=== PATIENT | female | born 1955 | race Caucasian/White ===

== ENCOUNTER 2016-12-03 14:19 | Inpatient (IN) | payer OTHER ==
[~2016-12-03] VITALS: Ht 165.1 cm; Wt 61.9 kg
[2016-12-03 14:20] VITALS: BP 208/102; PULSE 98; RESP 20; TEMP 97.3; O2SAT 93
[2016-12-03] MEDS ORDERED: SODIUM CHLOR 0.9% 1000 ML INJ 1,000 ML IV SCH (14:37)
--- NOTE | 2016-12-03 14:39 | PD ---
HPI Chief Complaint: GI Complaint Time Seen by Provider: 14:25 Travel History International Travel<30 days: No Contact w/Intl Traveler<30days: No Traveled to known affect area: No History of Present Illness HPI This is a 61-year-old female history of pancreatic cancer who presents for evaluation of cough, nausea, vomiting, diarrhea. She reports that she received her 12th round of chemotherapy this past Sunday on November. She reports that since then she has had nausea, vomiting, diarrhea as well as a cough. The cough is dry and persistent. She reports several episodes of watery stool a day however she begin taking Imodium yesterday and this seems to have resolved diarrhea. She has had persistent nausea with vomiting and dry heaving. She has been taking Zofran by mouth but this doesn't seem to be helping. She reports her temperature has been up to 99.6 and her temperature always seems to be in this range after her chemotherapy treatments. He denies any chest pain or abdominal pain, flank pain, dysuria. Her oncologist is Dr. Cam. Primary care physician is Dr. Silva. She reports that she was hospitalized at the end of September for several days for fever of unknown origin and she was receiving antibiotics during that time. That was last time she had antibiotic therapy. No history of C. difficile. No other complaints. PFSH Past Medical History Narrative Medical History of pancreatic cancer, hypertension Chemotherapy: Yes (11/29/16) Diabetes: Yes Social History Alcohol Use: No Tobacco Use: No Allergies-Medications (Allergen,Severity, Reaction): Coded Allergies: Codeine (Verified Allergy, Severe, Dizziness, 12/03/16) Dilaudid (Verified Allergy, Severe, Confusion, 12/03/16) Phenergan (Verified Allergy, Severe, Swelling, 12/03/16) Reported Meds & Prescriptions Reported Meds & Active Scripts Active Reported Pancreatin 325 Mg Tab 500 Mg PO TIDAC Systane Opth Drops (Polyethylene Glycol-Propylene Glycol Opth Drp) 0.4-0.3% Soln 1-2 Drop EACH EYE PRN PRN Calcium Carbonate (Antacid) 500 Mg Chew 750 Mg CHEW PRN Vitamin D-400 (Cholecalciferol) 400 Unit Chew 400 Units CHEW DAILY Probiotic (Lactobacillus Acidophilus) 1 Cap Cap 1 Cap PO TIDAC [place]-3 Fish Oil/Vitamin (Fish Oil-Cholecalciferol) 1,000-1,000 Mg Cap 1 Cap PO DAILY Multiple Vitamin 1 Tab 1 Tab PO DAILY Aspirin 81 Mg Chew 81 Mg CHEW DAILY Folic Acid 400 Mcg Tab 400 Mcg PO DAILY Metoprolol Tartrate 25 Mg Tab 25 Mg PO BID Review of Systems Except as stated in HPI: all other systems reviewed are Neg Physical Exam Narrative GENERAL: Well-developed well-nourished female in no acute distress SKIN: Warm and dry. Healed surgical scar noted across the abdomen. HEAD: Atraumatic. Normocephalic. EYES: Pupils equal and round. No scleral icterus. No injection or drainage. ENT: No nasal bleeding or discharge. Mucous membranes pink and moist. NECK: Trachea midline. No JVD. CARDIOVASCULAR: Regular rate and rhythm. No murmur appreciated. RESPIRATORY: No accessory muscle use. Clear to auscultation. Breath sounds equal bilaterally. No crackles no wheezing or rhonchi GASTROINTESTINAL: Abdomen soft, non-tender, nondistended. Hepatic and splenic margins not palpable. MUSCULOSKELETAL: No obvious deformities. Pedal edema bilaterally. NEUROLOGICAL: Awake and alert. No obvious cranial nerve deficits. Motor grossly within normal limits. Normal speech. PSYCHIATRIC: Appropriate mood and affect; insight and judgment normal. Data Data Last Documented VS Vital Signs Date Time Temp Pulse Resp B/P Pulse Ox O2 Delivery O2 Flow Rate FiO2 12/03/16 14:20 97.3 98 20 208/102 93 Room Air Orders Electrocardiogram (12/03/16 14:37) Complete Blood Count With Diff (12/03/16 14:37) Comprehensive Metabolic Panel (12/03/16 14:37) Magnesium (Mg) (12/03/16 14:37) Lipase (12/03/16 14:37) Urinalysis - C+S If Indicated (12/03/16 14:37) Influenzae A/B Antigen (12/03/16 14:37) Blood Culture (12/03/16 14:37) Chest, Pa & Lat (12/03/16 14:37) Iv Access Insert/Monitor (12/03/16 14:37) Ondansetron Inj (Zofran Inj) (12/03/16 14:45) Sodium Chlor 0.9% 1000 Ml Inj (Ns 1000 M (12/03/16 14:37) C Diff Toxin Pcr (12/03/16 14:39) Enteric Path (Stool) (12/03/16 14:39) Lactic Acid Sepsis Protocol (12/03/16 14:59) Albuterol-Ipratropium Neb (Duoneb Neb) (12/03/16 15:15) Metoclopramide Inj (Reglan Inj) (12/03/16 16:15) Urine Culture (12/03/16 15:49) Azithromycin Inj (Zithromax Inj) (12/03/16 17:00) Ceftriaxone Inj (Rocephin Inj) (12/03/16 17:00) Admit To Inpatient (12/03/16 ) Vital Signs (Adult) Q4H (12/03/16 17:00) Activity Oob Ad Leonela (12/03/16 17:00) Intake + Output IMELDA.QSHIFT (12/03/16 17:00) Diet Heart Healthy (12/03/16 Dinner) Sodium Chlor 0.9% 1000 Ml Inj (Ns 1000 M (12/03/16 17:00) Sodium Chloride 0.9% Flush (Ns Flush) (12/03/16 17:00) Sodium Chloride 0.9% Flush (Ns Flush) (12/03/16 21:00) Acetaminophen (Tylenol) (12/03/16 17:00) Ondansetron Inj (Zofran Inj) (12/03/16 17:00) Temazepam (Restoril) (12/03/16 17:00) Comprehensive Metabolic Panel (12/04/16 06:00) Complete Blood Count With Diff (12/04/16 06:00) Scd Bilateral/Knee High IMELDA.BID (12/03/16 17:00) Naloxone Inj (Narcan Inj) (12/03/16 17:00) Inpatient Certification (12/03/16 ) Admit Order (Ed Use Only) (12/03/16 17:11) Labs Laboratory Tests Test 12/03/16 12/03/16 15:00 15:49 White Blood Count 14.9 TH/MM3 Red Blood Count 3.20 MIL/MM3 Hemoglobin 10.3 GM/DL Hematocrit 30.5 % Mean Corpuscular Volume 95.1 FL Mean Corpuscular Hemoglobin 32.2 PG Mean Corpuscular Hemoglobin 33.8 % Concent Red Cell Distribution Width 20.4 % Platelet Count 127 TH/MM3 Mean Platelet Volume 10.0 FL Neutrophils (%) (Auto) 97.6 % Lymphocytes (%) (Auto) 1.9 % Monocytes (%) (Auto) 0.4 % Eosinophils (%) (Auto) 0.1 % Basophils (%) (Auto) 0.0 % Neutrophils # (Auto) 14.5 TH/MM3 Lymphocytes # (Auto) 0.3 TH/MM3 Monocytes # (Auto) 0.1 TH/MM3 Eosinophils # (Auto) 0.0 TH/MM3 Basophils # (Auto) 0.0 TH/MM3 CBC Comment DIFF FINAL Differential Comment Sodium Level 130 MEQ/L Potassium Level 4.3 MEQ/L Chloride Level 94 MEQ/L Carbon Dioxide Level 23.9 MEQ/L Anion Gap 12 MEQ/L Blood Urea Nitrogen 31 MG/DL Creatinine 1.67 MG/DL Estimat Glomerular Filtration 31 ML/MIN Rate Random Glucose 135 MG/DL Lactic Acid Level 1.5 mmol/L Calcium Level 8.6 MG/DL Magnesium Level 2.7 MG/DL Total Bilirubin 1.5 MG/DL Aspartate Amino Transf 62 U/L (AST/SGOT) Alanine Aminotransferase 58 U/L (ALT/SGPT) Alkaline Phosphatase 79 U/L Total Protein 7.0 GM/DL Albumin 2.8 GM/DL Lipase 81 U/L Urine Color YELLOW Urine Turbidity HAZY Urine pH 6.0 Urine Specific [place] 1.016 Urine Protein 300 mg/dL Urine Glucose (UA) NEG mg/dL Urine Ketones TRACE mg/dL Urine Occult Blood MOD Urine Nitrite NEG Urine Bilirubin NEG Urine Urobilinogen LESS THAN 2.0 MG/DL Urine Leukocyte Esterase NEG Urine RBC 8 /hpf Urine WBC 17 /hpf Urine Squamous Epithelial 2 /hpf Cells Urine White Blood Cell Casts 10 /lpf Urine Mucus FEW /lpf Microscopic Urinalysis Comment CATH-CULTURE IND MDM Medical Decision Making Medical Screen Exam Complete: Yes Emergency Medical Condition: Yes Medical Record Reviewed: Yes Interpretation(s) Chest x-ray mild consolidation at both bases CBC WBC 14.9 with 97.6% neutrophils CMP BUN 31, creatinine 1.67, sodium 1:30, chloride 94, magnesium 2.7, total bilirubin 1.5, AST 62, and ALT 58 Urinalysis 17 the PVCs, 8 RBCs on a culture pending Differential Diagnosis Chemotherapy side effect versus dehydration versus neutropenic fever versus C. difficile versus gastroenteritis versus bronchitis versus pneumonia versus influenza Narrative Course This is a 61-year-old female who received her 12th round of chemotherapy for pancreatic cancer on November 29. Since then she has had a cough, nausea and vomiting. She had diarrhea for several days but this seems to have resolved with the use of Imodium. She's had no abdominal pain. Temperature as high as 99.6 at home with no objective fevers. Plan is for basic lab work, chest x-ray, blood cultures, influenza antigen. She'll be given IV fluids and Zofran and reassessed. The patient's pulse oximetry is low at 92%. Upon recheck it was 96%. She reports that she had some wheezing yesterday evening in her upper airways. She will be given a DuoNeb therapy. The patient's lab work imaging studies of interview. She has questionable consolidation in both lung bases and given her cough there is concern for pneumonia. Urinalysis reveals pyuria and hematuria concerning for urinary tract infection. White count is elevated at 14.9 with 97% neutrophils. BUN 31 with creatinine 1.67, likely acute kidney injury secondary to dehydration, no history of chronic kidney disease. Hyponatremia noted as well. The patient will be given azithromycin and Rocephin. She will be admitted for further management. Discussed with Dr. Bustamante who is agreeable. Sepsis Criteria SIRS Criteria (2 or more): Heart rate over 90, WBC > 56482, < 4000 or > 10% bands Sepsis Criteria (SIRS+source): Infect source susp/known Criteria Outcome: Meets sepsis criteria Diagnosis Primary Impression: UTI (urinary tract infection) Qualified Code: N30.01 - Acute cystitis with hematuria Additional Impressions: Pneumonia Qualified Code: J18.9 - Pneumonia of both lower lobes due to infectious organism PAULA (acute kidney injury) Admitting Information Admitting Physician Requests: Admit Francisco Ireland Dec 03, 2016 14:39
[2016-12-03] MEDS ORDERED: ONDANSETRON HCL 4 MG/2 ML VIAL IVP ONE (14:45)
[2016-12-03] MEDS ORDERED: [UNRECOGNIZED DRUG - CODE] PO (14:48)
[2016-12-03] MEDS ORDERED: OMEGCAP PO (14:48)
[2016-12-03] MEDS ORDERED: ASPI81CH CHEW (14:48)
[2016-12-03] MEDS ORDERED: LACTCAP8 PO (14:48)
[2016-12-03] MEDS ORDERED: MULTTAB67 PO (14:48)
[2016-12-03] MEDS ORDERED: VITA400C59 CHEW (14:48)
[2016-12-03] MEDS ORDERED: SYSTSOL EACH EYE (14:48)
[2016-12-03] MEDS ORDERED: METO25TA3 PO (14:48)
[2016-12-03] MEDS ORDERED: FOLI400T PO (14:48)
[2016-12-03] MEDS ORDERED: CALC500C16 CHEW (14:48)
[2016-12-03] MEDS: RESP: ALBUTEROL 2.5 MG/IPRATROPIUM 0.5 MG NEB (SCH) INH (15:27)
[2016-12-03 15:30] VITALS: BP 183/85; PULSE 98; RESP 16; O2SAT 98
--- NOTE | 2016-12-03 15:40 | RADRPT ---
EXAM DATE/TIME: 12/03/2016 15:22 [place] COMPARISON: No previous studies available for comparison. INDICATIONS : Cough. MEDICAL HISTORY : Carcinoma, pancreas. SURGICAL HISTORY : Port placement. ENCOUNTER: Initial ACUITY: 4 - 6 days PAIN SCORE: 0/10 LOCATION: Bilateral chest FINDINGS: Small pleural effusions and mild proximal consolidation seen of both lung bases. No pneumothorax. Hea rt size within normal limits. There is a left subclavian [id number] catheter with tip in the superior vena cava. CONCLUSION: Small effusions and mild consolidation of both bases. Moy Garcia MD on December 03, 2016 at 15:38 Board Certified Radiologist. This report was verified electronically.
[2016-12-03 15:42] LABS: AUTOMATED NEUTROPHIL # 14.5 TH/MM3 (1.8-7.7); EOSINOPHIL % 0.1 % (0.0-4.0); HEMATOCRIT 30.5 % (35.0-46.0); HEMO FLAGS DIFF FINAL; LYMPH % 1.9 % (9.0-44.0); LYMPHOCYTE # 0.3 TH/MM3 (1.0-4.8); MEAN CELL VOLUME 95.1 FL (80.0-100.0); MEAN CORPUSCULAR HEMOGLOBIN 32.2 PG (27.0-34.0); MEAN CORPUSCULAR HGB CONC 33.8 % (32.0-36.0); MONO % 0.4 % (0.0-8.0); NEUT % 97.6 % (16.0-70.0); PLATELET COUNT 127 TH/MM3 (150-450); RED CELL DISTRIBUTION WIDTH 20.4 % (11.6-17.2); WHITE BLOOD COUNT 14.9 TH/MM3 (4.0-11.0)
[2016-12-03 16:04] LABS: ANION GAP 12 MEQ/L (5-15); AST (GOT) 62 U/L (15-37); BICARBONATE 23.9 MEQ/L (21.0-32.0); BLOOD UREA NITROGEN 31 MG/DL (7-18); CHLORIDE 94 MEQ/L (98-107); GLOMERULAR FILTRATION RATE 31 ML/MIN (>89); MAGNESIUM 2.7 MG/DL (1.5-2.5); POTASSIUM 4.3 MEQ/L (3.5-5.1); SODIUM (NA) 130 MEQ/L (136-145)
[2016-12-03 16:08] LABS: ALKALINE PHOSPHATASE 79 U/L (45-117); ALT (GPT) 58 U/L (10-53); TOTAL BILIRUBIN ADULT 1.5 MG/DL (0.2-1.0)
[2016-12-03] MEDS ORDERED: METOCLOPRAMIDE HCL 10 MG/2 ML VIAL IV PUSH ONE (16:15)
[2016-12-03 16:19] LABS: BLOOD, URINE MOD (NEG); GLUCOSE,URINE NEG (NEG); KETONE, URINE TRACE mg/dL (NEG); MUCUS URINE FEW /lpf (OCC); NITRITE,URINE NEG (NEG); SQUAMOUS EPITHELIAL CELL URINE 2 /hpf (0-5); URINE COLOR YELLOW (YELLW/STRAW); WHITE BLOOD CELL CAST, URINE 10 /lpf
[2016-12-03 16:31] LABS: COMMENT (UR) CATH-CULTURE IND; CULTURE IF INDICATED CATH CULTURE IND
[2016-12-03] MEDS ORDERED: SODIUM CHLORIDE 0.9% FLUSH 5 ML FLUSH FLUSH PRN (17:00)
[2016-12-03] MEDS ORDERED: AZITHROMYCIN INJ 500 MG in SODIUM CHLOR 0.9% 250 ML INJ 250 ML IV ONE (17:00)
[2016-12-03] MEDS ORDERED: NALOXONE HCL 0.4 MG/ML AMP IV PRN (17:00)
[2016-12-03] MEDS ORDERED: ACETAMINOPHEN 325 MG TAB PO PRN (17:00)
[2016-12-03] MEDS ORDERED: ONDANSETRON HCL 4 MG/2 ML VIAL IVP PRN (17:00)
[2016-12-03] MEDS ORDERED: cefTRIAXone INJ 1,000 MG in SODIUM CHLORIDE 0.9% INJ 100 ML IV ONE (17:00)
--- NOTE | 2016-12-03 17:04 | HHI.HP ---
cc: Dr. Silva [facility] Service [facility] Primary Care Physician Antonio Silva MD Admission Diagnosis Diagnoses: Chief Complaint: cough/nausea/vomiting/diarrhea Travel History International Travel<30 Days: No Contact w/Intl Traveler <30 Da: No Traveled to Known Affected Are: No Sepsis Criteria SIRS Criteria (2 or more): Heart rate over 90, WBC > 62387, < 4000 or > 10% bands Sepsis Criteria (SIRS+source): Infect source susp/known Criteria Outcome: Meets sepsis criteria History of Present Illness 61-year-old female with history of pancreatic cancer on chemotherapy, and hypertension, presents with a 4 day history of cough, nausea/vomiting, and diarrhea. The patient states on Wednesday 11/29 she had her last round of chemotherapy and afterwards started developing cough and fevers. The patient states normally she does experience fevers after chemotherapy. She became concerned when she developed an intractable dry nonproductive cough and associated chest tightness described as difficulty taking deep breaths. She then started having nonbloody diarrhea, took Imodium which did help relieve the diarrhea. She then developed nausea, with only few episodes of clear emesis. Denies abdominal pain. She has not been able to eat in 4 days and feels very weak and dehydrated. Her oncologist is Dr. Cam. Since her arrival, BP has been elevated, 208/102. The patient did take her metoprolol this morning however on previous doctor's visits her blood pressure has been consistently elevated. She was started on amlodipine by her PCP however developed lower extremity edema and her doctor discontinued this 1 week ago. Chest xray obtained which showed small bilateral effusions and infiltrates. UA abnormal. She was given IV Rocephin and Azithro. Labs remarkable for WBC 14.9K, Na 130, Cr 1.67. The patient denies any history of CKD. Review of Systems Constitutional: COMPLAINS OF: Fatigue, Fever, DENIES: Diaphoretic episodes, Weight gain, Weight loss, Chills, Dizziness, Change in appetite Endocrine: DENIES: Polydipsia, Polyuria, Polyphagia Eyes: DENIES: Blurred vision, Vision loss, Double Vision Ears, nose, mouth, throat: DENIES: Throat pain, Running Nose, Odynophagia Respiratory: COMPLAINS OF: Cough, DENIES: Wheezing, Sputum production, Shortness of breath Cardiovascular: COMPLAINS OF: Lower Extremity Edema, DENIES: Chest pain, Syncope, Dyspnea on Exertion Gastrointestinal: COMPLAINS OF: Diarrhea, Nausea, Vomiting, DENIES: Abdominal pain, Black stools, Bloody stools, Constipation Genitourinary: DENIES: Urinary frequency, Urgency, Dysuria Musculoskeletal: DENIES: Back pain, Neck pain Integumentary: DENIES: Abnormal pigmentation, Pruritus, Rash Hematologic/lymphatic: DENIES: Bruising, Lymphadenopathy Immunologic/allergic: DENIES: Eczema, Urticaria Neurologic: DENIES: Abnormal gait, Headache, Localized weakness Psychiatric: DENIES: Anxiety, Depression Past Family Social History Past Medical History pancreatic cancer on chemotherapy hypertension Past 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 Reported Medications Pancreatin 325 Mg Tab 500 Mg PO TIDAC Systane Opth Drops (Polyethylene Glycol-Propylene Glycol Opth Drp) 0.4-0.3% Soln 1-2 Drop EACH EYE PRN PRN Calcium Carbonate (Antacid) 500 Mg Chew 750 Mg CHEW PRN Vitamin D-400 (Cholecalciferol) 400 Unit Chew 400 Units CHEW DAILY Probiotic (Lactobacillus Acidophilus) 1 Cap Cap 1 Cap PO TIDAC [place]-3 Fish Oil/Vitamin (Fish Oil-Cholecalciferol) 1,000-1,000 Mg Cap 1 Cap PO DAILY Multiple Vitamin 1 Tab 1 Tab PO DAILY Aspirin 81 Mg Chew 81 Mg CHEW DAILY Folic Acid 400 Mcg Tab 400 Mcg PO DAILY Metoprolol Tartrate 25 Mg Tab 25 Mg PO BID Allergies: Coded Allergies: Codeine (Verified Allergy, Severe, Dizziness, 12/03/16) Dilaudid (Verified Allergy, Severe, Confusion, 12/03/16) Phenergan (Verified Allergy, Severe, Swelling, 12/03/16) Active Ordered Medications Current Medications Medications (Trade) Dose Ordered Sig/Nathaniel Route Start Time Stop Time Status Last Admin Azithromycin 500 mg/Sodium Chloride 250 ml @ 250 mls/hr ONCE ONCE IV 12/03/16 17:00 12/03/16 17:59 (Rocephin Inj/NS Inj) 100 ml @ 200 mls/hr ONCE ONCE IV 12/03/16 17:00 3/12/17 17:29 Family History Maternal family with breast cancer Father with enlarged heart Social History Denies any tobacco, alcohol, or illicit drug use. Physical Exam Vital Signs Vital Signs Date Time Temp Pulse Resp B/P Pulse Ox O2 Delivery O2 Flow Rate FiO2 12/03/16 14:20 97.3 98 20 208/102 93 Room Air Physical Exam GENERAL: Well-nourished, well-developed pleasant middle aged female patient in [facility]. SKIN: Warm and dry. No rash. HEAD: Normocephalic. Atraumatic. EYES: Pupils equal and round. No scleral icterus. No injection or drainage. ENT: No nasal bleeding or discharge. Mucous membranes dry. NECK: Supple. Trachea midline. CARDIOVASCULAR: Regular rate and rhythm. S1, S2 noted. No murmur appreciated. RESPIRATORY: No accessory muscle use. Diminished breath sounds at bilateral bases with faint crackles at the right base. Breath sounds equal bilaterally. GASTROINTESTINAL: Abdomen soft, non-tender, nondistended. Normoactive bowel sounds x4. MUSCULOSKELETAL: No obvious deformities. 1+ bilateral lower extremity edema. NEUROLOGICAL: Awake and alert. No obvious cranial nerve deficits. Motor grossly within normal limits. 5/5 muscle strength in bilateral upper and lower extremities. Normal speech. PSYCHIATRIC: Appropriate mood and affect; insight and judgment normal. Laboratory Laboratory Tests Test 12/03/16 12/03/16 15:00 15:49 White Blood Count 14.9 Red Blood Count 3.20 Hemoglobin 10.3 Hematocrit 30.5 Mean Corpuscular Volume 95.1 Mean Corpuscular Hemoglobin 32.2 Mean Corpuscular Hemoglobin 33.8 Concent Red Cell Distribution Width 20.4 Platelet Count 127 Mean Platelet Volume 10.0 Neutrophils (%) (Auto) 97.6 Lymphocytes (%) (Auto) 1.9 Monocytes (%) (Auto) 0.4 Eosinophils (%) (Auto) 0.1 Basophils (%) (Auto) 0.0 Neutrophils # (Auto) 14.5 Lymphocytes # (Auto) 0.3 Monocytes # (Auto) 0.1 Eosinophils # (Auto) 0.0 Basophils # (Auto) 0.0 CBC Comment DIFF FINAL Differential Comment Sodium Level 130 Potassium Level 4.3 Chloride Level 94 Carbon Dioxide Level 23.9 Anion Gap 12 Blood Urea Nitrogen 31 Creatinine 1.67 Estimat Glomerular Filtration 31 Rate Random Glucose 135 Lactic Acid Level 1.5 Calcium Level 8.6 Magnesium Level 2.7 Total Bilirubin 1.5 Aspartate Amino Transf 62 (AST/SGOT) Alanine Aminotransferase 58 (ALT/SGPT) Alkaline Phosphatase 79 Total Protein 7.0 Albumin 2.8 Lipase 81 Urine Color YELLOW Urine Turbidity HAZY Urine pH 6.0 Urine Specific [place] 1.016 Urine Protein 300 Urine Glucose (UA) NEG Urine Ketones TRACE Urine Occult Blood MOD Urine Nitrite NEG Urine Bilirubin NEG Urine Urobilinogen LESS THAN 2.0 Urine Leukocyte Esterase NEG Urine RBC 8 Urine WBC 17 Urine Squamous Epithelial 2 Cells Urine White Blood Cell Casts 10 Urine Mucus FEW Microscopic Urinalysis Comment CATH-CULTURE IND Date/Time Procedure Status Source Growth 12/03/16 15:49 Urine Culture Received Urine Catheterized Urine Pending 12/03/16 15:08 Aerobic Blood Culture Received Blood Peripheral Pending 12/03/16 15:08 Anaerobic Blood Culture Received Blood Peripheral Pending 12/03/16 15:00 Influenza Types A,B Antigen (MAGALY) - Final Complete Nasal Aspirate NEGATIVE FOR FLU A AND B ANTIGEN.... Result Diagram: 12/03/16 1500 12/03/16 1500 Imaging 12/03/16 - CXR with small effusions and mild consolidations at both bases. Assessment and Plan Problem List: (1) Sepsis ICD Code: A41.9 Status: Acute (2) Pneumonia ICD Code: J18.9 Status: Acute (3) UTI (urinary tract infection) ICD Code: N39.0 Status: Acute (4) PAULA (acute kidney injury) ICD Code: N17.9 Status: Acute (5) Accelerated hypertension ICD Code: I10 Status: Acute (6) Pancreatic cancer ICD Code: C25.9 Status: Chronic Assessment and Plan 61-year-old female with past medical history of pancreatic cancer on chemotherapy and hypertension presents with a 4 day history of cough, nausea/ vomiting, and diarrhea Sepsis: suspect secondary to pneumonia, possible UTI. WBC 14.9K, tachycardic. Lactic acid 1.5. Influenza negative. Blood cultures collected. UA abnormal, see below. CXR with pneumonia, see below. Start IV Antibiotics. IVF. Monitor CBC. Community Acquired Pneumonia, Immunocompromised: CXR images reviewed by me, shows bilateral small effusions and consolidations. +leukocytosis and tachycardia. Continue on IV Rocephin/Azithro. Nebs prn. Robitussin prn cough. UTI, suspected: UA abnormal. On IV Rocephin as above. Monitor Urine culture. Intractable Nausea/Vomiting/Diarrhea: suspect multifactorial secondary to chemotherapy, pneumonia, UTI. Supportive treatment with IVF, antiemetics prn. Check stool studies, Cdiff. Diet as tolerated. Lactinex tid. PAULA: Cr 1.6, no previous labs to compare however no reported hx of CKD. Likely prerenal secondary to dehydration with vomiting/diarrhea. Give IVF. Avoid nephrotoxins. Repeat BMP in the am. Hypertensive Urgency secondary to Accelerated Hypertension: BP 208/102 in the ED. Avoid RODRI and diuretic with PAULA. Avoid Norvasc with recent reaction with lower extremity edema. Restart patient's metoprolol. Start on Nifedipine SR 30mg daily. Clonidine prn. Pancreatic Cancer: s/p resection. Undergoing chemotherapy. Continue patient's Pancreatin. Oncologist is Dr. Cam. Elevated LFT's: Probably secondary to chemo or sepsis. F/U LFT in AM. Hyponatremia: likely secondary to recent vomiting/diarrhea. Continue IVF with NS. Monitor BMP. Normocytic Anemia: likely secondary to cancer/chemotherapy. Hgb 10.3. No active signs of bleeding. Monitor CBC. Elevated Blood Glucose: random glucose 135 upon arrival. Check HgbA1c. DVT Prophylaxis: SCDs Written by Tana Zuniga, acting as scribe for Dr. Bustamante on 12/03/16 at 17:15. All or portions of this note were transcribed as above. I, Dr. Juancho Bustamante personally performed the history, physical exam, and medical decision making; and confirmed the accuracy of the information in the transcribed note. Authenticated by Dr. Juancho Bustamante on 12/03/16 at 17:49. Discussed Condition With Patient, ER Tana Singleton PA-C Dec 03, 2016 17:04 Juancho Bustamante MD Dec 03, 2016 17:51
[2016-12-03] MEDS ORDERED: RESP: ALBUTEROL 2.5 MG/IPRATROPIUM 0.5 MG NEB (PRN) NEB (17:15)
[2016-12-03] MEDS ORDERED: guaiFENesin/DEXTROMETHORPHAN 200 MG/20 MG/10 ML CUP PO PRN (17:15)
[2016-12-03 17:25] VITALS: BP 194/101; PULSE 100; RESP 18; O2SAT 96
[2016-12-03] MEDS ORDERED: NON-FORMULARY DRUG (Polyethylene Glycol-Propylene Glycol Opth Drp (Systane Opth Drops) 0 D EACH EYE PRN (17:45)
[2016-12-03] MEDS ORDERED: cloNIDine HCL 0.1 MG TAB PO PRN (17:45)
[2016-12-03] MEDS ORDERED: NIFEdipine 30 MG SUSTAINED RELEASE TAB PO ONE (17:45)
[2016-12-03] MEDS ORDERED: ENALAPRILAT 2.5 MG/2 ML VIAL IV PUSH ONE (17:45)
[2016-12-03] MEDS ORDERED: [UNRECOGNIZED DRUG - OTHER] EACH EYE PRN (18:15)
[2016-12-03 18:26] VITALS: BP 146/78; PULSE 91; RESP 16; O2SAT 95
[2016-12-03] MEDS: SODIUM CHLOR 0.9% 1000 ML INJ 1,000 ML IV SCH (18:37)
[2016-12-03] MEDS: SODIUM CHLORIDE 0.9% FLUSH 5 ML FLUSH FLUSH SCH (19:31)
[2016-12-03] MEDS: METOPROLOL TARTRATE 25 MG TAB PO SCH (19:31)
[2016-12-03 20:00] VITALS: BP 170/97; PULSE 97; RESP 18; TEMP 98.2; O2SAT 96
[2016-12-03 21:33] VITALS: BP 165/81; PULSE 84
[2016-12-03] MEDS: TEMAZEPAM 15 MG CAP PO PRN (23:39)
[2016-12-04] VITALS: BP 171/97; PULSE 98; RESP 18; TEMP 98.1; O2SAT 91
[2016-12-04] MEDS: SODIUM CHLOR 0.9% 1000 ML INJ 1,000 ML IV SCH (01:00)
[2016-12-04 04:00] VITALS: BP 144/88; PULSE 91; RESP 17; TEMP 98.2; O2SAT 92
[2016-12-04 06:54] LABS: AUTOMATED NEUTROPHIL # 8.9 TH/MM3 (1.8-7.7); BASOPHIL % 0.2 % (0.0-2.0); EOSINOPHIL # 0.1 TH/MM3 (0-0.4); EOSINOPHIL % 0.5 % (0.0-4.0); HEMATOCRIT 26.7 % (35.0-46.0); LYMPH % 6.5 % (9.0-44.0); LYMPHOCYTE # 0.6 TH/MM3 (1.0-4.8); MEAN CELL VOLUME 96.4 FL (80.0-100.0); MEAN CORPUSCULAR HEMOGLOBIN 32.6 PG (27.0-34.0); MEAN CORPUSCULAR HGB CONC 33.9 % (32.0-36.0); MONO % 0.9 % (0.0-8.0); NEUT % 91.9 % (16.0-70.0); PLATELET COUNT 96 TH/MM3 (150-450); RED BLOOD COUNT 2.77 MIL/MM3 (4.00-5.30); RED CELL DISTRIBUTION WIDTH 20.2 % (11.6-17.2); WHITE BLOOD COUNT 9.7 TH/MM3 (4.0-11.0)
[2016-12-04 06:59] LABS: HEMO FLAGS AUTO DIFF
[2016-12-04 07:25] LABS: ALT (GPT) 45 U/L (10-53); ANION GAP 9 MEQ/L (5-15); AST (GOT) 45 U/L (15-37); BICARBONATE 22.7 MEQ/L (21.0-32.0); BLOOD UREA NITROGEN 31 MG/DL (7-18); CHLORIDE 100 MEQ/L (98-107); GLOMERULAR FILTRATION RATE 39 ML/MIN (>89); POTASSIUM 3.8 MEQ/L (3.5-5.1); SODIUM (NA) 132 MEQ/L (136-145)
[2016-12-04 07:27] LABS: ALKALINE PHOSPHATASE 65 U/L (45-117); TOTAL BILIRUBIN ADULT 0.9 MG/DL (0.2-1.0)
[2016-12-04 08:00] VITALS: BP 162/87; PULSE 91; RESP 16; TEMP 98.3; O2SAT 98
[2016-12-04] MEDS ORDERED: PANCREATIN PO SCH ×2 (08:00)
[2016-12-04 08:11] LABS: CRENATED RBCS 1+ (NORMAL)
[2016-12-04 08:12] LABS: OVALOCYTES 1+ (NORMAL); PLATELET ESTIMATE SMEAR LOW (NORMAL); PLATELET MORPHOLOGY NORMAL (NORMAL); SCAN/DIFF AUTO DIFF CONFIRMED
[2016-12-04] MEDS ORDERED: FOLIC ACID 1 MG TAB PO SCH (09:00)
[2016-12-04] MEDS: METOPROLOL TARTRATE 25 MG TAB PO SCH ×2 (09:30→20:00)
[2016-12-04] MEDS: LACTOBACILLUS ACIDOPHILUS TAB PO SCH ×3 (09:30→19:19)
[2016-12-04] MEDS: NIFEdipine 30 MG SUSTAINED RELEASE TAB PO SCH (09:31)
[2016-12-04] MEDS: CHOLECALCIFEROL (VIT D3) 400 UNIT TAB PO SCH (09:31)
[2016-12-04] MEDS: ASPIRIN 81 MG CHEW TAB CHEW SCH (09:31)
[2016-12-04] MEDS: SODIUM CHLORIDE 0.9% FLUSH 5 ML FLUSH FLUSH SCH ×2 (09:32→20:00)
[2016-12-04] MEDS: FOLIC ACID 1 MG TAB PO SCH (09:32)
[2016-12-04 11:14] LABS: HEMOGLOBIN A1b 0.9 %; HEMOGLOBIN Ao 84.9 %; HEMOGLOBIN F 0.9 %; HEMOGLOBIN LA1C 1.9 %
[2016-12-04 12:00] VITALS: BP 160/87; PULSE 86; RESP 20; TEMP 98.8; O2SAT 94
--- NOTE | 2016-12-04 12:44 | HHI.PR ---
Subjective Remarks Patient reports feeling better today. Coughing less. Afebrile. Objective Vitals Vital Signs Date Time Temp Pulse Resp B/P Pulse Ox O2 Delivery O2 Flow Rate FiO2 12/04/16 08:00 98.3 91 16 162/87 98 12/04/16 04:00 98.2 91 17 144/88 92 12/04/16 00:00 98.1 98 18 171/97 91 12/03/16 21:33 84 165/81 12/03/16 20:00 98.2 97 18 170/97 96 12/03/16 18:26 91 16 146/78 95 Room Air 12/03/16 17:25 100 18 194/101 96 Nasal Cannula 2 12/03/16 15:30 98 16 183/85 98 Nasal Cannula 2 12/03/16 14:20 97.3 98 20 208/102 93 Room Air I/O 12/03/16 12/03/16 12/03/16 12/04/16 12/04/16 12/04/16 07:00 15:00 23:00 07:00 15:00 23:00 Intake Total 240 ml 1642 ml Balance 240 ml 1642 ml Intake Oral 240 ml 720 ml IV Total 922 ml Result Diagram: 12/04/16 0620 12/04/16 0620 Objective Remarks GENERAL: This is a well-nourished, well-developed patient, in no apparent distress. CARDIOVASCULAR: Normal rate and regular rhythm without murmurs, gallops, or rubs. RESPIRATORY: Good respiratory efforts. Diminished breath sounds at the bases bilaterally. No wheezing. GASTROINTESTINAL: Abdomen soft, non-tender, non-distended. Normal active bowel sounds MUSCULOSKELETAL: Extremities without cyanosis, or edema. NEURO: Alert & Oriented x4 to person, place, time, situation. Moves all ext x4 PSYCH: Appropriate mood and affect. A/P Problem List: (1) Sepsis ICD Code: A41.9 Status: Acute (2) Pneumonia ICD Code: J18.9 Status: Acute (3) UTI (urinary tract infection) ICD Code: N39.0 Status: Acute (4) PAULA (acute kidney injury) ICD Code: N17.9 Status: Acute (5) Accelerated hypertension ICD Code: I10 Status: Acute (6) Pancreatic cancer ICD Code: C25.9 Status: Chronic Assessment and Plan 61-year-old female with past medical history of pancreatic cancer on chemotherapy and hypertension presents with a 4 day history of cough, nausea/ vomiting, and diarrhea Sepsis: suspect secondary to pneumonia. CXR with pneumonia. Continue IV Antibiotics. Monitor CBC. Community Acquired Pneumonia, Immunocompromised: CXR images reviewed by me, shows bilateral small effusions and consolidations. +leukocytosis and tachycardia on admission. Continue on IV Rocephin/Azithro. Nebs prn. Robitussin prn cough. Abnormal urinalysis: Urine cultures so far negative. Continue to monitor. Intractable Nausea/Vomiting/Diarrhea: suspect multifactorial secondary to chemotherapy, pneumonia, UTI. Much improved. Supportive treatment antiemetics prn. PAULA: Cr 1.6 on admission, no previous labs to compare however no reported hx of CKD. Likely prerenal secondary to dehydration with vomiting/diarrhea. Avoid nephrotoxins. Repeat BMP in the am. Hypertensive Urgency secondary to Accelerated Hypertension: BP 208/102 in the ED. Avoid RODRI and diuretic with PAULA. Avoid Norvasc with recent reaction with lower extremity edema. Restart patient's metoprolol. Started on nifedipine. Clonidine prn. Pancreatic Cancer: s/p resection. Undergoing chemotherapy. Continue patient's Pancreatin. Oncologist is Dr. Cam. Elevated LFT's: Probably secondary to chemo or sepsis. Resolved. Normocytic Anemia: likely secondary to cancer/chemotherapy. H&H stable. No active signs of bleeding. Monitor CBC. Elevated Blood Glucose: random glucose 135 upon arrival. HgbA1c 6.0. DVT Prophylaxis: SCDs Problem Qualifiers (1) Pneumonia: Qualified Code: J18.9 - Pneumonia of both lower lobes due to infectious organism (2) UTI (urinary tract infection): Qualified Code: N30.01 - Acute cystitis with hematuria Juancho Bustamante MD Dec 04, 2016 12:44
--- NOTE | 2016-12-04 14:51 | EKG ---
Date Performed: 12/03/2016 Time Performed: 14:56:14 PTAGE: 61 years EKG: Sinus rhythm NORMAL ECG NO PREVIOUS TRACING DOCTOR: Marycruz Canas Interpretating Date/Time 12/04/2016 14:48:37
[2016-12-04 17:00] VITALS: BP 165/96; PULSE 100; RESP 18; TEMP 99.3; O2SAT 94
[2016-12-04] MEDS: cefTRIAXone INJ 1,000 MG in SODIUM CHLORIDE 0.9% INJ 100 ML IV SCH (20:00)
[2016-12-04 21:25] VITALS: BP 173/88; PULSE 87; RESP 18; TEMP 98.9; O2SAT 95
[2016-12-04] MEDS: AZITHROMYCIN INJ 500 MG in SODIUM CHLOR 0.9% 250 ML INJ 250 ML IV SCH (21:33)
[2016-12-05] VITALS (8 sets, daily range): BP systolic 159–192; BP diastolic 74–96; PULSE 86–102; RESP 18–20; TEMP 97.3–98.7; O2SAT 94–98
--- NOTE | 2016-12-05 00:29 | RADRPT ---
EXAM DATE/TIME: 12/04/2016 22:46 [facility] COMPARISON: No previous studies available for comparison. INDICATIONS : Bilateral leg swelling. MEDICAL HISTORY : Mitral valve prolapse. Pancreatic cancer. Chemotherapy. Diabetes. Anxiety. SURGICAL HISTORY : Splenectomy. Pancreatic resection. ENCOUNTER: Initial ACUITY: 1 week PAIN SCORE: 2/10 LOCATION: Bilateral legs. TECHNIQUE: Venous ultrasound of the left and right leg was performed from the inguinal ligament to the proximal calf. Real-time, color Doppler and spectral tracing, compression and augmentation techniques were us ed. FINDINGS: RIGHT LEG: There is normal compressibility of the deep venous system from the inguinal region to the proximal ca lf. No echogenic clot is seen in the lumen of the common femoral, femoral, popliteal, and posterior tibial veins. There is a normal response of the venous system to proximal and distal augmentation an d respiration. LEFT LEG: There is normal compressibility of the deep venous system from the inguinal region to the proximal ca lf. No echogenic clot is seen in the lumen of the common femoral, femoral, popliteal, and posterior tibial veins. There is a normal response of the venous system to proximal and distal augmentation an d respiration. CONCLUSION: No evidence of lower extremity DVT on the right or left. Kodi Magdaleno MD on December 05, 2016 at 0:28 Board Certified Radiologist. This report was verified electronically.
[2016-12-05] MEDS: TEMAZEPAM 15 MG CAP PO PRN (00:31)
--- NOTE | 2016-12-05 00:31 | RADRPT ---
EXAM DATE/TIME: 12/04/2016 23:08 [facility] COMPARISON: No previous studies available for comparison. INDICATIONS : Left arm swelling. MEDICAL HISTORY : Mitral valve prolapse. Pancreatic cancer. Chemotherapy. Diabetes. Anxiety. SURGICAL HISTORY : Splenectomy. Pancreatic resection. ENCOUNTER: Initial ACUITY: 1 week PAIN SCORE: 1/10 LOCATION: Left arm. FINDINGS: Of the basilic vein distally indicating nonocclusive thrombus. There is otherwise normal compression and color Doppler flow of the left upper extremity veins. CONCLUSION: Nonocclusive superficial vein thrombosis of the basilic vein distally. No evidence of left upper extremity DVT. Kodi Magdaleno MD on December 05, 2016 at 0:28 Board Certified Radiologist. This report was verified electronically.
[2016-12-05 08:44] LABS: BICARBONATE 21.9 MEQ/L (21.0-32.0); POTASSIUM 3.9 MEQ/L (3.5-5.1)
[2016-12-05] MEDS: FOLIC ACID 1 MG TAB PO SCH (08:45)
[2016-12-05] MEDS: LACTOBACILLUS ACIDOPHILUS TAB PO SCH ×3 (08:45→17:00)
[2016-12-05] MEDS: METOPROLOL TARTRATE 25 MG TAB PO SCH (08:45)
[2016-12-05] MEDS: ASPIRIN 81 MG CHEW TAB CHEW SCH (08:45)
[2016-12-05] MEDS: SODIUM CHLORIDE 0.9% FLUSH 5 ML FLUSH FLUSH SCH ×2 (08:45→20:23)
[2016-12-05] MEDS: ENOXAPARIN SODIUM 40 MG/0.4 ML SYRINGE SQ SCH (08:45)
[2016-12-05] MEDS: NIFEdipine 30 MG SUSTAINED RELEASE TAB PO SCH (08:45)
[2016-12-05] MEDS: CHOLECALCIFEROL (VIT D3) 400 UNIT TAB PO SCH (08:45)
[2016-12-05 08:48] LABS: HEMATOCRIT 26.5 % (35.0-46.0); MEAN CELL VOLUME 96.2 FL (80.0-100.0); MEAN CORPUSCULAR HEMOGLOBIN 32.6 PG (27.0-34.0); MEAN CORPUSCULAR HGB CONC 33.8 % (32.0-36.0); PLATELET COUNT 63 TH/MM3 (150-450); RED BLOOD COUNT 2.76 MIL/MM3 (4.00-5.30); RED CELL DISTRIBUTION WIDTH 20.8 % (11.6-17.2); WHITE BLOOD COUNT 4.9 TH/MM3 (4.0-11.0)
[2016-12-05] MEDS ORDERED: NIFEdipine 30 MG SUSTAINED RELEASE TAB PO ONE (09:15)
--- NOTE | 2016-12-05 09:52 | HHI.PR ---
Subjective Remarks Patient reports persistent lower extremity swelling. Still gets short of breath with activities. On 2 L NC. No chest pain. Urinating well. US overnight revealed superficial basilic vein thrombosis. Objective Vitals Vital Signs Date Time Temp Pulse Resp B/P Pulse Ox O2 Delivery O2 Flow Rate FiO2 12/05/16 08:00 98.7 100 20 165/80 94 12/05/16 05:41 97.8 96 20 159/74 94 12/05/16 00:00 98.6 86 18 177/88 96 12/04/16 21:25 98.9 87 18 173/88 95 12/04/16 17:00 99.3 100 18 165/96 94 12/04/16 12:00 98.8 86 20 160/87 94 I/O 12/04/16 12/04/16 12/04/16 12/05/16 12/05/16 12/05/16 07:00 15:00 23:00 07:00 15:00 23:00 Intake Total 1642 ml 720 ml 480 ml Balance 1642 ml 720 ml 480 ml Intake Oral 720 ml 720 ml 480 ml IV Total 922 ml # Voids 5 2 # Bowel Movements 0 Result Diagram: 12/04/16 0620 12/05/16 0730 Objective Remarks GENERAL: This is a well-nourished, well-developed patient, in no apparent distress. CARDIOVASCULAR: Normal rate and regular rhythm without murmurs, gallops, or rubs. RESPIRATORY: Good respiratory efforts. Diminished breath sounds at the bases bilaterally. No wheezing. GASTROINTESTINAL: Abdomen soft, non-tender, non-distended. Normal active bowel sounds MUSCULOSKELETAL: 2+ bilateral LE pitting edema. NEURO: Alert & Oriented x4 to person, place, time, situation. Moves all ext x4 PSYCH: Appropriate mood and affect. A/P Problem List: (1) Sepsis ICD Code: A41.9 Status: Acute (2) Pneumonia ICD Code: J18.9 Status: Acute (3) UTI (urinary tract infection) ICD Code: N39.0 Status: Acute (4) PAULA (acute kidney injury) ICD Code: N17.9 Status: Acute (5) Accelerated hypertension ICD Code: I10 Status: Acute (6) Pancreatic cancer ICD Code: C25.9 Status: Chronic Assessment and Plan 61-year-old female with past medical history of pancreatic cancer on chemotherapy and hypertension presents with a 4 day history of cough, nausea/ vomiting, and diarrhea Sepsis on admission: suspect secondary to pneumonia. CXR with effusion and consolidation. Resolving. Continue IV Antibiotics. Monitor CBC. Community Acquired Pneumonia, Immunocompromised: CXR images reviewed by me, shows bilateral small effusions and consolidations. +leukocytosis and tachycardia on admission. Continue on IV Rocephin/Azithro. Nebs prn. Robitussin prn cough. PAULA: Cr 1.6 on admission, no previous labs to compare however no reported hx of CKD. Renal functions improved with IVF but LE edema worst. Will consult nephrology to evaluate the patient and determine if she would benefit from diuretics given persistent LE edema and the small effusions on chest x-ray Peripheral edema: See above. Obtain 2-d echo to rule out heart failure from uncontrolled HTN. Dejon gaspar. Intractable Nausea/Vomiting/Diarrhea: suspect multifactorial secondary to chemotherapy, pneumonia, UTI. Much improved. Supportive treatment antiemetics prn. Abnormal urinalysis: Urine cultures negative. Hypertensive Urgency on admission: BP 208/102 in the ED. BP still uncontrolled after adding Nifedipine. Patient reports Edema with Norvasc. Increase Metoprolol to 50 mg BID and Nifedipine to 60 mg daily. Clonidine prn. Appreciate further input from nephrology. Pancreatic Cancer: s/p resection. Undergoing chemotherapy. Continue patient's Pancreatin. Oncologist Dr. Cam consulted. Oral candidiasis: Diflucan and magic mouthwash for Oncology. Elevated LFT's: Probably secondary to chemo or sepsis. Resolved. Normocytic Anemia: likely secondary to cancer/chemotherapy. H&H stable. No active signs of bleeding. Monitor CBC. Left basilic vein superficial thrombosis: Hematology/Oncology following. Lovenox for DVT ppx. Elevated Blood Glucose: random glucose 135 upon arrival. HgbA1c 6.0. DVT Prophylaxis: Lovenox Case DW Dr. Cam. Problem Qualifiers (1) Pneumonia: Qualified Code: J18.9 - Pneumonia of both lower lobes due to infectious organism (2) UTI (urinary tract infection): Qualified Code: N30.01 - Acute cystitis with hematuria Juancho Bustamante MD Dec 05, 2016 09:52
[2016-12-05 09:54] LABS: REVIEW FLAG FINAL
[2016-12-05] MEDS ORDERED: FLUCONAZOLE 200 MG PREMIX BAG 100 ML IV SCH (11:00)
--- NOTE | 2016-12-05 12:10 | PD.CONS ---
HPI Service Nephrology Consult Requested By Reason for Consult Acute renal failure, lower extremity edema Primary Care Physician Antonio Silva MD History of Present Illness This is a 61 y/o female pt with a hx of HTN, MVP, and pancreatic cancer on chemotherapy. She was admitted with intractable nausea/vomiting, cough, that she had for days prior to admission. She finished her last chemo last Sunday last week. On arrival she was in renal failure, which has actually improved with IVF. Creatinine 1.6, improved to 1.2. She has developed lower extremity edema that has worsened. Of note her government contracts manager had started her on Amlodipine , which she took for 3 days and stopped due to the edema. Her sodium was also low on arrival, but has improved, now 134. We were consulted for management. She is in no distress, no complaints aside from altered taste due to thrush. She is on Zithrmoax and Rocephin for suspected UTI and PNA. She also has protein in the urine which may be new, she does not recall anyone mentioning this to her. (Aleida Underwood) Review of Systems Constitutional: COMPLAINS OF: Fatigue, DENIES: Fever, Weight gain Cardiovascular: COMPLAINS OF: Lower Extremity Edema Genitourinary: DENIES: Urinary frequency, Urinary incontinence, Urgency, Hematuria, Dysuria, Nocturia (Aleida Underwood) Past Family Social History Allergies: Coded Allergies: Codeine (Verified Allergy, Severe, Dizziness, 12/03/16) Dilaudid (Verified Allergy, Severe, Confusion, 12/03/16) Phenergan (Verified Allergy, Severe, Swelling, 12/03/16) Past Medical History HTN pancreatic CA s/p resection and chemotherapy MV Prolapse Past Surgical History pancreatectomy splenectomy, Jun 2016 Reported Medications Pancreatin 325 Mg Tab 500 Mg PO TIDAC Systane Opth Drops (Polyethylene Glycol-Propylene Glycol Opth Drp) 0.4-0.3% Soln 1-2 Drop EACH EYE PRN PRN Calcium Carbonate (Antacid) 500 Mg Chew 750 Mg CHEW PRN Vitamin D-400 (Cholecalciferol) 400 Unit Chew 400 Units CHEW DAILY Probiotic (Lactobacillus Acidophilus) 1 Cap Cap 1 Cap PO TIDAC Harvey-3 Fish Oil/Vitamin (Fish Oil-Cholecalciferol) 1,000-1,000 Mg Cap 1 Cap PO DAILY Multiple Vitamin 1 Tab 1 Tab PO DAILY Aspirin 81 Mg Chew 81 Mg CHEW DAILY Folic Acid 400 Mcg Tab 400 Mcg PO DAILY Metoprolol Tartrate 25 Mg Tab 25 Mg PO BID Active Ordered Medications Current Medications Medications (Trade) Dose Ordered Sig/Nathaniel Route Start Time Stop Time Status Last Admin (NS 1000 ml Inj) 1,000 ml @ 125 mls/hr Q8H IV 12/03/16 17:00 Hold 12/04/16 01:00 (NS Flush) 2 ml UNSCH PRN FLUSH 12/03/16 17:00 (NS Flush) 2 ml BID FLUSH 12/03/16 21:00 12/05/16 08:45 (Tylenol) 650 mg Q4H PRN PO 12/03/16 17:00 (Zofran Inj) 4 mg Q6H PRN IVP 12/03/16 17:00 (Restoril) 15 mg HS PRN PO 12/03/16 17:00 12/05/16 00:31 (Narcan Inj) 0.4 mg UNSCH PRN IV 12/03/16 17:00 Guaifenesin/ Dextromethorphan 10 ml 10 ml Q4H PRN PO 12/03/16 17:15 Ceftriaxone Sodium 1000 mg/ Sodium Chloride 100 ml @ 200 mls/hr Q24H IV 12/04/16 17:00 12/04/16 20:00 (Zithromax Inj/ NS 250 ml Inj) 250 ml @ 250 mls/hr Q24H IV 12/04/16 17:00 12/04/16 21:33 (Catapres) 0.1 mg Q6H PRN PO 12/03/16 17:45 (Aspirin Chew) 81 mg DAILY CHEW 12/04/16 09:00 12/05/16 08:45 (Vitamin D3) 400 units DAILY PO 12/04/16 09:00 12/05/16 08:45 (Lactinex) 1 tab TIDAC PO 12/04/16 08:00 12/05/16 08:45 (Folate) 1 mg DAILY PO 12/04/16 09:00 12/05/16 08:45 Patient Own Medication PT OWN MED: SYSTA... UNSCH PRN EACH EYE 12/03/16 18:15 Hold Patient Own Medication PT OWN MED: PANCREA... TIDAC PO 12/04/16 08:00 Hold (Lovenox Inj) 40 mg Q24H SQ 12/05/16 09:00 12/05/16 08:45 Nifedipine 60 mg 60 mg DAILY PO 12/06/16 09:00 (Diflucan 200 Mg Premix Bag) 100 ml @ 100 mls/hr Q24H IV 12/05/16 11:00 12/05/16 11:59 (Magic Mouthwash Adult Liq) 5 ml QID SWISH-SWAL 12/05/16 13:00 (Lopressor) 50 mg BID PO 12/05/16 21:00 (Diflucan) 100 mg DAILY PO 12/06/16 09:00 Family History no hx of renal disorders Social History no smoking or ETOH , [facility] [employer] [facility] full code (Aleida Underwood) Physical Exam Vital Signs Vital Signs Date Time Temp Pulse Resp B/P Pulse Ox O2 Delivery O2 Flow Rate FiO2 12/05/16 08:00 98.7 100 20 165/80 94 12/05/16 05:41 97.8 96 20 159/74 94 12/05/16 00:00 98.6 86 18 177/88 96 12/04/16 21:25 98.9 87 18 173/88 95 12/04/16 17:00 99.3 100 18 165/96 94 12/04/16 12:00 98.8 86 20 160/87 94 Physical Exam Young appearing female pt, awake/alert using oxygen via Nasal cannula, scattered rales in bases S1/S2, tachycardic abd soft, benign extremities, 2-3+ non pitting edema Laboratory Laboratory Tests Test 12/05/16 07:30 White Blood Count 4.9 Red Blood Count 2.76 Hemoglobin 9.0 Hematocrit 26.5 Mean Corpuscular Volume 96.2 Mean Corpuscular Hemoglobin 32.6 Mean Corpuscular Hemoglobin 33.8 Concent Red Cell Distribution Width 20.8 Platelet Count 63 Mean Platelet Volume 8.1 Sodium Level 134 Potassium Level 3.9 Chloride Level 103 Carbon Dioxide Level 21.9 Anion Gap 9 Blood Urea Nitrogen 31 Creatinine 1.21 Estimat Glomerular Filtration 45 Rate Random Glucose 101 Calcium Level 8.1 Date/Time Procedure Status Source Growth 12/03/16 15:49 Urine Culture - Final Complete Urine Catheterized Urine 10-50,000 CFU/ML MIXED LUÍS... 12/03/16 15:08 Aerobic Blood Culture - Preliminary Resulted Blood Peripheral NO GROWTH IN 2 DAYS 12/03/16 15:08 Anaerobic Blood Culture - Preliminary Resulted Blood Peripheral NO GROWTH IN 2 DAYS 12/03/16 15:00 Influenza Types A,B Antigen (MAGALY) - Final Complete Nasal Aspirate NEGATIVE FOR FLU A AND B ANTIGEN.... (Aleida Underwood) Result Diagram: 12/05/16 0730 12/05/16 0730 Imaging Last 72 hours Impressions Chest X-Ray 12/03/16 1437 Signed Impressions: Service Date/Time: Saturday, December 03, 2016 15:22 - CONCLUSION: Small effusions and mild consolidation of both bases. Moy Garcia MD (Aleida Underwood) Assessment and Plan Problem List: (1) PAULA (acute kidney injury) Plan: in a pt with no labs for comparison renal function improved with IVF, likely prerenal etiology secondary to dehydration no electrolyte concerns she also has proteinuria, which may be from UTI, repeat UA ordered quantify proteinuria she does have lower extremity edema, which developed before her admission, may have been due to Amlodipine I will stop Nifedipine, which can also cause edema, and change it to Losartan at this time stop IVF, doppler ordered to rule out DVT (2) Accelerated hypertension Plan: on metoprolol BID stop nifedipine, start losartan tachycardic, monitor rate (3) Pancreatic cancer Plan: oncology to be consulted she was planning on additional treatment in December (4) Hyponatremia Plan: likely hypovolemic hyponatremia due to vomiting has improved with IVF, stop fluids and monitor for now (Aleida Underwood) Assessment and Plan patient was seen and examined. Agree with above assessment and plan. (Hayden Villalta MD) Aleida Underwood Dec 05, 2016 12:10 Hayden Villalta MD Dec 05, 2016 20:46
[2016-12-05] MEDS: NYSTAT/DIPHENHY/LIDO MOUTHWASH (Adult) 120ML SWISH-SWAL SCH ×3 (12:56→20:22)
[2016-12-05] MEDS: LOSARTAN 25 MG TAB PO SCH (14:25)
--- NOTE | 2016-12-05 17:39 | EC ---
Study Study Date:12/05/2016 STUDY CONCLUSIONS SUMMARY - Left ventricle: The cavity size was normal. Wall thickness was increased in a pattern of mild LVH. Systolic function was normal. The estimated ejection fraction was in the range of 55% to 60%. Wall motion was normal; there were no regional wall motion abnormalities. Features are consistent with a pseudonormal left ventricular filling pattern, with concomitant abnormal relaxation and increased filling pressure (grade 2 diastolic dysfunction). - Aortic valve: Valve area: 1.78cm^2 (Vmax). - Mitral valve: Mild to moderate regurgitation. - Left atrium: The atrium was moderately dilated. - Right atrium: The atrium was mildly dilated. - Tricuspid valve: Mild regurgitation. - Pericardium, extracardiac: A trivial pericardial effusion was identified. There was a large left pleural effusion. If LV function is below 40, please consider prescribing an ACEI or ARB or document rationale for non-use. PROCEDURE DATA STUDY STATUS: Elective. Procedure: Transthoracic echocardiography. Image quality was good. Scanning was performed from the parasternal, apical, and subcostal acoustic windows. Study completion: The patient tolerated the procedure well. Transthoracic echocardiography. M-mode, complete 2D, complete spectral Doppler, and color Doppler. Height: Height: 65in. Weight: Weight: 164.7lb. Body mass index: BMI: 27.5kg/m^2. Body surface area: BSA: 1.82m^2. Patient status: Inpatient. CARDIAC ANATOMY LEFT VENTRICLE: The cavity size was normal. Wall thickness was increased in a pattern of mild LVH. Systolic function was normal. The estimated ejection fraction was in the range of 55% to 60%. Wall motion was normal; there were no regional wall motion abnormalities. Features are consistent with a pseudonormal left ventricular filling pattern, with concomitant abnormal relaxation and increased filling pressure (grade 2 diastolic dysfunction). AORTIC VALVE: Trileaflet; normal thickness leaflets. Doppler: Transvalvular velocity was within the normal range. There was no stenosis. No regurgitation. Valve area: 1.78cm^2 (Vmax). Indexed valve area: 0.98cm^2/m^2 (Vmax). AORTA: Aortic root: The aortic root was normal in size. MITRAL VALVE: Structurally normal valve. Doppler: Transvalvular velocity was within the normal range. There was no evidence for stenosis. Mild to moderate regurgitation. Valve area by pressure half-time: 5.95cm^2. Indexed valve area by pressure half-time: 3.27cm^2/m^2. Mean gradient: 97mm Hg (D). Peak gradient: 154mm Hg (D). LEFT ATRIUM: The atrium was moderately dilated. RIGHT VENTRICLE: The cavity size was normal. Wall thickness was normal. PULMONIC VALVE: Doppler: Transvalvular velocity was within the normal range. There was no evidence for stenosis. No regurgitation. TRICUSPID VALVE: Structurally normal valve. Doppler: Transvalvular velocity was within the normal range. Mild regurgitation. Peak gradient: 39mm Hg (D). PULMONARY ARTERY: The main pulmonary artery was normal-sized. Systolic pressure was within the normal range. RIGHT ATRIUM: The atrium was mildly dilated. PERICARDIUM: A trivial pericardial effusion was identified. SYSTEMIC VEINS: Inferior vena cava: The vessel was normal in size. Pleura: There was a large left pleural effusion. Patient weight: 164.7lb _Ejection fraction:_ 65-75% _Fractional shortening:_ 32% up to 5Kg 5-11.5Kg 11.6-22.9Kg 23-45Kg 45-57Kg Aortic Root 7-13 <17 13-22 17-27 17-27 LA diam 6-13 <23 24-38 33-47 37-40 RVID 10-17 7-15 7-15 7-18 8-17 LVIDd 12-22 <32 24-38 33-47 37-40 LVPW 2-4 3-6 5-7 6-8 7-8 IVS 2-4 3-6 5-7 6-8 7-8 BASIC MEASUREMENTS ADULT NORMAL Left ventricle LV internal dimension, ED, chordal *42.8 mm 43-52 level, PLAX LV internal dimension, ES, chordal 29.4 mm 23-38 level, PLAX Fractional shortening, chordal level, 31 % >29 PLAX LV posterior wall thickness, ED 9.19 mm IVS/LVPW ratio, ED 0.99 <1.3 Volume, ED, MOD, 1-plane 64 ml Volume, ES, MOD, 1-plane 24 ml Ejection fraction, MOD, 1-plane 63 % Stroke volume, MOD, 1-plane 40 ml Volume index, ED, MOD, 1-plane 35 ml/m^2 Volume index, ES, MOD, 1-plane 13 ml/m^2 Stroke index, MOD, 1-plane 22 ml/m^2 Ventricular septum Septal thickness, ED 9.07 mm Aortic valve Leaflet separation 17 mm 15-26 Left atrium Anterior-posterior dimension 36 mm Anterior-posterior dimension index 1.98 cm/m^2 <2.2 Right ventricle RV internal dimension, ED, PLAX 24.3 mm 19-38 BASIC MEASUREMENTS ADULT NORMAL Aortic valve Leaflet separation 17 mm 15-26 Aorta Root diameter, ED 32 mm 20-37 DOPPLER MEASUREMENTS ADULT NORMAL Aortic valve Peak velocity, S 140 cm/s VTI, S 182 cm Valve area, Vmax 1.78 cm^2 Valve area index, Vmax 0.98 cm^2/m^2 Mitral valve Peak E-wave velocity 106 cm/s Peak A-wave velocity 91.3 cm/s Mean velocity, D 450 cm/s Pressure half-time 37 ms Mean gradient, D 97 mm Hg Peak gradient, D 154 mm Hg Peak E/A ratio 1.2 Valve area, pressure half-time 5.95 cm^2 Valve area index, pressure half-time 3.27 cm^2/m^2 Tricuspid valve Peak gradient, D 39 mm Hg Maximal inflow velocity 314 cm/s Systemic veins Estimated CVP 10 mm Hg Pulmonic valve Peak velocity, S 89 cm/s LEGEND: Mean values are shown as u=mean value. Asterisk (*) chapman values outside specified normal range. Prepared and signed by Ansih Fischer [id number]
[2016-12-05] MEDS: cefTRIAXone INJ 1,000 MG in SODIUM CHLORIDE 0.9% INJ 100 ML IV SCH (18:42)
[2016-12-05] MEDS: AZITHROMYCIN INJ 500 MG in SODIUM CHLOR 0.9% 250 ML INJ 250 ML IV SCH (18:42)
[2016-12-05] MEDS: METOPROLOL TARTRATE 50 MG TAB PO SCH (20:18)
[2016-12-06] VITALS: BP 149/80; PULSE 79; RESP 17; TEMP 98.3; O2SAT 98
[2016-12-06 04:00] VITALS: BP 156/89; PULSE 86; RESP 17; TEMP 97.5; O2SAT 96
[2016-12-06 05:34] LABS: BLOOD, URINE MOD (NEG); COMMENT (UR) CULT NOT INDICATED; CULTURE IF INDICATED CULT NOT INDICATED; GLUCOSE,URINE NEG (NEG); HYALINE CAST, URINE 1 /lpf (RARE); KETONE, URINE NEG (NEG); MUCUS URINE FEW /lpf (OCC); NITRITE,URINE NEG (NEG); RENAL EPITHELIAL CELLS <1 /hpf; SQUAMOUS EPITHELIAL CELL URINE 1 /hpf (0-5); TRANSITIONAL EPI CELLS, URINE <1 /hpf; URINE COLOR YELLOW (YELLW/STRAW)
[2016-12-06 05:37] VITALS: O2SAT 96
[2016-12-06 07:49] LABS: HEMATOCRIT 25.6 % (35.0-46.0); MEAN CELL VOLUME 94.1 FL (80.0-100.0); MEAN CORPUSCULAR HEMOGLOBIN 32.7 PG (27.0-34.0); MEAN CORPUSCULAR HGB CONC 34.8 % (32.0-36.0); PLATELET COUNT 25 TH/MM3 (150-450); RED BLOOD COUNT 2.72 MIL/MM3 (4.00-5.30); RED CELL DISTRIBUTION WIDTH 20.7 % (11.6-17.2); WHITE BLOOD COUNT 8.6 TH/MM3 (4.0-11.0)
--- NOTE | 2016-12-06 07:50 | MB ---
cc: HAILEY GRIFFITH MD, ZAFAR MD DATE OF CONSULTATION: 12/05/2016 DATE OF : 1955 HEMATOLOGY/ONCOLOGY CONSULTATION Consult requested by the hospitalist physicians. REASON FOR CONSULTATION Patient with a diagnosis of pancreatic adenocarcinoma involving the distal pancreas. TREATMENT HISTORY TO DATE The patient underwent a distal pancreatectomy, mesenteric lymph node dissection and splenectomy on 07/06/2016 (performed at [facility] in [place]). Pathologic stage: pT3,pN0,M0, G2, stage IIA. CURRENT TREATMENT The patient had been on adjuvant systemic chemotherapy with single-agent gemcitabine at a dose of 1000 mg/m2 on days 1, 8 and 15 of a 28-day cycle. She has thus far completed 4 cycles. CHIEF COMPLAINT 1. Fatigue, weakness. 2. Decreased appetite and nausea which was intractable. 3. Exertional dyspnea. 4. Diarrhea. 5. Lower extremity edema without pain. HISTORY OF PRESENT ILLNESS Ms. Vaca is a very pleasant 61-year-old female who is well-known to me from my outpatient practice. Ms. Vaca was diagnosed with a distal pancreatic/pancreatic body adenocarcinoma in the Fall of 2015. She underwent surgical resection at the [facility] in [place]. She had an R0 resection and was recommended postoperative adjuvant systemic therapy followed by adjuvant radiation. Ms. Vaca had been tolerating systemic chemotherapy reasonably well; however, she over the past week or so developed progressive fatigue, weakness, difficulty breathing, diarrhea and lower extremity edema. She presented to the [facility] Emergency Department on 12/03/2016 and was noted to be anemic. She was noted to have acute renal insufficiency and also had deranged liver enzymes. Imaging studies including chest x-ray revealed bilateral pleural effusions with suspected underlying pulmonary infiltrates. Her urinalysis also revealed findings concerning for a urinary tract infection. She was initiated on empiric antibiotics with azithromycin and ceftriaxone and was initiated on IV fluids. She also received IV antiemetic therapy for management of intractable nausea. Over the past 24 hours her renal function is improved, liver enzymes have normalized and her nausea has almost completely resolved. The patient did develop swelling of the left upper extremity on 09/05/2017 and underwent an ultrasound Doppler of the left upper extremity. This revealed a nonocclusive superficial venous thrombosis involving the basilic vein. There was no evidence of left upper extremity deep venous thrombosis. I have been asked to see the patient upon the patient and her 's request. PAST MEDICAL HISTORY 1. Stage IIA adenocarcinoma of the pancreatic body/tail of the pancreas. 2. Hypertension. 3. Borderline diabetes. 4. Acute on chronic renal insufficiency. 5. Liver enzyme elevation. PAST SURGICAL HISTORY 1. Laparotomy with distal pancreatectomy and splenectomy with mesenteric lymph node sampling. 2. Bngulj-C-Lpbo placement. FAMILY HISTORY Mother's side, breast cancer. Father's side, cardiac issues. SOCIAL HISTORY Denies alcohol abuse or tobaccoism. 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 ALLERGIES 1. CODEINE. 2. DILAUDID. 3. PHENERGAN. MEDICATIONS Current inpatient medications: 1. Azithromycin 500 mg IV q.24h. 2. Ceftriaxone 1000 mg IV q.24h. 3. Tylenol 650 mg p.o. q.4h. as needed for fever. 4. Albuterol/ipratropium nebulizer q.4h. as needed for wheezing. 5. Aspirin 81 mg once daily. 6. Vitamin-D3 400 units p.o. daily. 7. Clonidine 0.1 mg p.o. q.6h. as needed for hypertension. 8. Lovenox 40 mg subcu q.24h. 9. Fluconazole 100 mg p.o. daily. 10.Folic acid 1 mg p.o. daily. 11.Guaifenesin DM cough syrup 200/20 per 10 mL p.o. q.4h. As needed for cough. 12.Lactobacillus, one tablet p.o. t.i.d. 13.Losartan 25 mg p.o. t.i.d. 14.Metoprolol 50 mg p.o. b.i.d. 15.Naloxone 0.4 mg as needed IV. 16.Nifedipine 30 mg p.o. x1. 17.Magic Mouthwash 5 mL swish and swallow four times daily. 18.Zofran 4 mg IV q.6h. as needed for nausea and vomiting. 19.Tempazepam 5 mg p.o. q.h.s. as needed for insomnia. REVIEW OF SYSTEMS A 13-point review of systems was obtained. Other than the above-noted complaints she denies acute complaints. She specifically denies having had headaches. She denies chest pain, PND, orthopnea. Pertinent positives: Cough, difficulty breathing with exertion, nausea, vomiting, diarrhea. She denies hematochezia or melena. No specific aches or pains or complaints. PHYSICAL EXAMINATION VITAL SIGNS: Temperature 97.3 degrees Fahrenheit, heart rate 102 beats a minute, blood pressure 192/96. O2 sats 98% on 2 liters nasal cannula. GENERAL APPEARANCE: Ms. Vaca is a middle-aged female. She is sitting up in bed, appears to be in no acute distress. HEENT: Head is atraumatic, normocephalic. Conjunctivae are pale. Sclerae are anicteric. EOMI. PERRLA. No oropharyngeal erythema. NECK: No palpable cervical or supraclavicular lymphadenopathy. PULMONARY: Good air movement over the upper and middle lung zones. She has decreased bibasilar breath sounds with dullness to percussion. CARDIOVASCULAR: Regular rate and rhythm, S1, S2. No obvious murmurs, rubs or gallops. ABDOMEN: Protuberant belly, soft, no obvious tenderness. No palpable organ enlargement. EXTREMITIES: Lower extremities have bilateral pitting pretibial edema. No calf tenderness. ANALYST: No focal sensory or motor deficits. LABORATORY FINDINGS Blood work dated 12/05/2016: Sodium 134, potassium 3.9, chloride 103, bicarb 22, BUN 31, creatinine 1.21, EGFR 45, random glucose 101, lactic acid 1.5, calcium 8.1, total bilirubin 0.9, AST 45, ALT 45, alkaline phosphatase 65, albumin 2.7. Urinalysis revealed increased wbc's, rbc's, occult blood, ketones and protein. IMAGING STUDIES Ultrasound Doppler of the upper extremity dated 12/04/2016 reveals nonocclusive superficial venous thrombosis involving the basophilic vein distally. No evidence of left upper extremity deep venous thrombosis. Chest x-ray dated 12/03/2016: Small effusions bilaterally with mild consolidation bilaterally. ASSESSMENT Ms. Vaca is a 61-year-old female with a diagnosis stage IIA (T3,N0,M0, G2) adenocarcinoma of the distal pancreas. She was diagnosed in June 2016 and underwent primary surgical resection. She has thus far completed 4 cycles of adjuvant systemic therapy with gemcitabine 1000 mg/m2 on days 1, 8 and 15 of a 28-day cycle. Her last infusion I believe was about two weeks ago. The plan was to re-stage her after initial adjuvant systemic therapy with gemcitabine and then to treat her with concurrent chemoradiotherapy with Xeloda versus infusional 5-FU. The patient was to undergo restaging imaging scans next week. She presents to the hospital with complaints of fatigue, weakness, diarrhea, nausea, lower extremity swelling, as well as soreness of the throat. While upon presentation she was noted to have acute on chronic renal insufficiency, elevated liver enzymes, a nonocclusive superficial venous thrombosis of the left upper extremity as well as bilateral pleural effusions associated with lower lobe consolidation concerning for a community-acquired pneumonia. Additionally she was noted to have a urinary tract infection. RECOMMENDATIONS 1. Pancreatic adenocarcinoma: Presently she is recovering from her recent cycles of adjuvant systemic therapy with gemcitabine. I would like her to recover from her acute episode before we re-stage her with CT imaging or PET/CT imaging. 2. Nonocclusive superficial venous thrombosis of the left upper extremity: I have started her on a prophylactic dose of Lovenox. I would recommend she also undergo warm compresses to the area for management of the phlebitis. 3. Urinary tract infections: Should be covered with the ceftriaxone which she is on. 4. Suspected community-acquired pneumonia: Continue empiric antibiotics. If her respiratory status is not improved, I would recommend she undergo a noncontrast-enhanced CT scan of the chest to evaluate for pulmonary infiltrates. 5. Continue monitoring hepatic and renal function. 6. Observation of thrush in the oropharynx: Initiate fluconazole as well as Magic Mouthwash swish and swallow. MD GIANFRANCO Greenwood/LIZZIE /6:31 PM /7:09 AM
[2016-12-06 08:00] VITALS: BP 167/87; PULSE 88; RESP 18; TEMP 97.6; O2SAT 97
[2016-12-06 08:16] LABS: BICARBONATE 23.9 MEQ/L (21.0-32.0); POTASSIUM 4.1 MEQ/L (3.5-5.1)
--- NOTE | 2016-12-06 08:24 | PD.ONC.PN ---
Subjective Subjective Remarks Ms. Vaca reports feeling somewhat improved today, she is still not been able to get up out of bed to walk. She was told yesterday that she may be going home today once she has had a walk test to determine if she will require home oxygen. She also remains on IV antibiotics and is not sure whether IV antibiotics will be continued at home versus transitioning to oral antibiotics. Lower extremity edema has improved with compression stockings. She denies having had fevers or chills and denies acute pain. Objective Data Date Time Temp Pulse Resp B/P Pulse Ox O2 Delivery O2 Flow Rate FiO2 12/06/16 05:37 96 Nasal Cannula 2.00 12/06/16 04:00 97.5 86 17 156/89 96 12/06/16 00:00 98.3 79 17 149/80 98 12/05/16 20:17 99 164/83 12/05/16 18:45 180/86 12/05/16 17:00 97.3 102 98 12/05/16 12:00 98.0 91 18 192/96 95 12/05/16 11:45 97 Nasal Cannula 2.00 12/06/16 12/06/16 12/06/16 07:00 15:00 23:00 Intake Total 480 ml Balance 480 ml Result Diagram: 12/05/16 0730 12/05/16 0730 Laboratory Results Laboratory Tests Test 12/06/16 04:58 Urine Color YELLOW Urine Turbidity CLEAR Urine pH 6.0 Urine Specific [place] 1.011 Urine Protein 100 mg/dL Urine Glucose (UA) NEG mg/dL Urine Ketones NEG mg/dL Urine Occult Blood MOD Urine Nitrite NEG Urine Bilirubin NEG Urine Urobilinogen LESS THAN 2.0 MG/DL Urine Leukocyte Esterase NEG Urine RBC 5 /hpf Urine WBC 4 /hpf Urine Squamous Epithelial 1 /hpf Cells Urine Transitional Epithelial <1 /hpf Cells Urine Renal Epithelial Cells <1 /hpf Urine Hyaline Casts 1 /lpf Urine Mucus FEW /lpf Microscopic Urinalysis Comment CULT NOT INDICATED Urine Random Creatinine 91 MG/DL Urine Microalbumin/Creatinine 1780 MG/G CRE Ratio Culture Results Microbiology Date/Time Procedure Status Source Growth 12/03/16 14:50 Aerobic Blood Culture - Preliminary Resulted Blood Peripheral NO GROWTH IN 2 DAYS 12/03/16 14:50 Anaerobic Blood Culture - Preliminary Resulted Blood Peripheral NO GROWTH IN 2 DAYS 12/03/16 15:00 Influenza Types A,B Antigen (MAGALY) - Final Complete Nasal Aspirate NEGATIVE FOR FLU A AND B ANTIGEN.... 12/03/16 15:08 Aerobic Blood Culture - Preliminary Resulted Blood Peripheral NO GROWTH IN 2 DAYS 12/03/16 15:08 Anaerobic Blood Culture - Preliminary Resulted Blood Peripheral NO GROWTH IN 2 DAYS 12/03/16 15:49 Urine Culture - Final Complete Urine Catheterized Urine 10-50,000 CFU/ML MIXED LUÍS... Administered Medications Medications (Trade) Dose Ordered Sig/Nathaniel Route PRN Reason Start Time Stop Time Status Last Admin Dose Admin IV Flush (NS Flush) 2 ml BID FLUSH 12/03/16 21:00 12/05/16 20:23 Temazepam 15 mg 15 mg HS PRN PO INSOMNIA 12/03/16 17:00 12/05/16 00:31 Ceftriaxone Sodium 1000 mg/ Sodium Chloride 100 ml @ 200 mls/hr Q24H IV 12/04/16 17:00 12/05/16 18:42 Azithromycin/ Sodium Chloride (Zithromax Inj/ NS 250 ml Inj) 250 ml @ 250 mls/hr Q24H IV 12/04/16 17:00 12/05/16 18:42 Aspirin (Aspirin Chew) 81 mg DAILY CHEW 12/04/16 09:00 12/05/16 08:45 Cholecalciferol (Vitamin D3) 400 units DAILY PO 12/04/16 09:00 12/05/16 08:45 Lactobacillus Acidophilus (Lactinex) 1 tab TIDAC PO 12/04/16 08:00 12/05/16 17:00 Folic Acid (Folate) 1 mg DAILY PO 12/04/16 09:00 12/05/16 08:45 Enoxaparin Sodium (Lovenox Inj) 40 mg Q24H SQ 12/05/16 09:00 12/05/16 08:45 Multi-Ingredient Mouthwash/Gargle (Magic Mouthwash Adult Liq) 5 ml QID SWISH-SWAL 12/05/16 13:00 12/05/16 20:22 Metoprolol Tartrate (Lopressor) 50 mg BID PO 12/05/16 21:00 12/05/16 20:18 Losartan Potassium (Cozaar) 25 mg DAILY PO 12/05/16 12:00 12/05/16 14:25 Objective Remarks GENERAL: Well-nourished, well-developed patient. SKIN: Warm and dry. HEAD: Normocephalic. EYES: No scleral icterus. No injection or drainage. NECK: Supple, trachea midline. No JVD or lymphadenopathy. LYMPHATIC: No adenopathy. CARDIOVASCULAR: Regular rate and rhythm without murmurs. RESPIRATORY: Breath sounds equal bilaterally. No accessory muscle use. GASTROINTESTINAL: Abdomen soft, non-tender, nondistended. EXTREMITIES: No cyanosis, or edema. MUSCULOSKELETAL: Adequate muscle tone. NEUROLOGICAL: No obvious focal deficit. Awake, alert, and oriented x3. PSYCHIATRIC: Appropriate mood and affect; insight and judgment normal. Assessment/Plan Assessment Ms. Vaca is a 61-year-old female with a diagnosis stage IIA (T3,N0,M0, G2) adenocarcinoma of the distal pancreas. She was diagnosed in June 2016 and underwent primary surgical resection. She has thus far completed 4 cycles of adjuvant systemic therapy with gemcitabine 1000 mg/m2 on days 1, 8 and 15 of a 28-day cycle. Her last infusion I believe was about two weeks ago. The plan was to re-stage her after initial adjuvant systemic therapy with gemcitabine and then to treat her with concurrent chemoradiotherapy with Xeloda versus infusional 5-FU. The patient was to undergo restaging imaging scans next week. She presents to the hospital with complaints of fatigue, weakness, diarrhea, nausea, lower extremity swelling, as well as soreness of the throat. While upon presentation she was noted to have acute on chronic renal insufficiency, elevated liver enzymes, a nonocclusive superficial venous thrombosis of the left upper extremity as well as bilateral pleural effusions associated with lower lobe consolidation concerning for a community-acquired pneumonia. Additionally she was noted to have a urinary tract infection. Plan 1. Pancreatic body adenocarcinoma: Status post surgical resection and adjuvant systemic chemotherapy with gemcitabine 4 cycles. Following discharge she will undergo restaging imaging scans followed by possible concurrent chemoradiotherapy should her disease remain in remission. 2. Acute renal insufficiency: Resolving well with IV fluid hydration. 3. Elevated liver enzymes: Resolved with IV fluid hydration and supportive care. 4. Suspected community-acquired pneumonia associated with parapneumonic effusions: Patient is on empiric antibiotic coverage with azithromycin and ceftriaxone. Clinically seems to be improving, on clinical exam today there is improved air movement over the lung bases. She may require home oxygen supplementation to be arranged. I believe she is stable to be transitioned from IV to oral antibiotics. May be d/annie home with out patient follow up. Carlos Cam MD Dec 06, 2016 08:24
[2016-12-06 08:41] LABS: REVIEW FLAG AUTO DIFF
[2016-12-06] MEDS ORDERED: COZA25TA PO (08:59)
[2016-12-06] MEDS ORDERED: CEFT500T3 PO (08:59)
[2016-12-06] MEDS ORDERED: AZIT250T3 PO (08:59)
[2016-12-06] MEDS ORDERED: METO50TA PO (08:59)
[2016-12-06] MEDS ORDERED: DIFL100T PO (08:59)
[2016-12-06] MEDS ORDERED: NIFEdipine 60 MG SUSTAINED RELEASE TAB PO SCH (09:00)
[2016-12-06] MEDS ORDERED: FLUCONAZOLE 100 MG TAB PO SCH (09:00)
--- NOTE | 2016-12-06 09:00 | HHI.DS ---
Discharge Summary Admission Date Dec 03, 2016 at 17:13 Discharge Date: Dec 06, 2016 Admitting Diagnosis (1) Sepsis ICD Code: A41.9 (2) Pneumonia ICD Code: J18.9 (3) UTI (urinary tract infection) ICD Code: N39.0 (4) PAULA (acute kidney injury) ICD Code: N17.9 (5) Accelerated hypertension ICD Code: I10 (6) Pancreatic cancer ICD Code: C25.9 (7) Diastolic dysfunction ICD Code: I51.9 Procedures None Brief History - From Admission 61-year-old female with history of pancreatic cancer on chemotherapy, and hypertension, presents with a 4 day history of cough, nausea/vomiting, and diarrhea. The patient states on Wednesday 11/29 she had her last round of chemotherapy and afterwards started developing cough and fevers. The patient states normally she does experience fevers after chemotherapy. She became concerned when she developed an intractable dry nonproductive cough and associated chest tightness described as difficulty taking deep breaths. She then started having nonbloody diarrhea, took Imodium which did help relieve the diarrhea. She then developed nausea, with only few episodes of clear emesis. Denies abdominal pain. She has not been able to eat in 4 days and feels very weak and dehydrated. Her oncologist is Dr. Cam. Since her arrival, BP has been elevated, 208/102. The patient did take her metoprolol this morning however on previous doctor's visits her blood pressure has been consistently elevated. She was started on amlodipine by her PCP however developed lower extremity edema and her doctor discontinued this 1 week ago. Chest xray obtained which showed small bilateral effusions and infiltrates. UA abnormal. She was given IV Rocephin and Azithro. Labs remarkable for WBC 14.9K, Na 130, Cr 1.67. The patient denies any history of CKD. CBC/BMP: 12/06/16 0700 12/06/16 0700 Significant Findings Laboratory Tests Test 12/03/16 12/03/16 12/04/16 12/05/16 15:00 15:49 06:20 07:30 White Blood Count 14.9 TH/MM3 (4.0-11.0) Red Blood Count 3.20 MIL/MM3 2.77 MIL/MM3 2.76 MIL/MM3 (4.00-5.30) (4.00-5.30) (4.00-5.30) Hemoglobin 10.3 GM/DL 9.0 GM/DL 9.0 GM/DL (11.6-15.3) (11.6-15.3) (11.6-15.3) Hematocrit 30.5 % 26.7 % 26.5 % (35.0-46.0) (35.0-46.0) (35.0-46.0) Red Cell Distribution Width 20.4 % 20.2 % 20.8 % (11.6-17.2) (11.6-17.2) (11.6-17.2) Platelet Count 127 TH/MM3 96 TH/MM3 63 TH/MM3 (150-450) (150-450) (150-450) Neutrophils (%) (Auto) 97.6 % 91.9 % (16.0-70.0) (16.0-70.0) Lymphocytes (%) (Auto) 1.9 % 6.5 % (9.0-44.0) (9.0-44.0) Neutrophils # (Auto) 14.5 TH/MM3 8.9 TH/MM3 (1.8-7.7) (1.8-7.7) Lymphocytes # (Auto) 0.3 TH/MM3 0.6 TH/MM3 (1.0-4.8) (1.0-4.8) Sodium Level 130 MEQ/L 132 MEQ/L 134 MEQ/L (136-145) (136-145) (136-145) Chloride Level 94 MEQ/L (98-107) Blood Urea Nitrogen 31 MG/DL (7-18) 31 MG/DL (7-18) 31 MG/DL (7-18) Creatinine 1.67 MG/DL 1.37 MG/DL 1.21 MG/DL (0.50-1.00) (0.50-1.00) (0.50-1.00) Estimat Glomerular Filtration 31 ML/MIN (>89) 39 ML/MIN (>89) 45 ML/MIN (>89) Rate Random Glucose 135 MG/DL (74-106) Magnesium Level 2.7 MG/DL (1.5-2.5) Total Bilirubin 1.5 MG/DL (0.2-1.0) Aspartate Amino Transf 62 U/L (15-37) 45 U/L (15-37) (AST/SGOT) Alanine Aminotransferase 58 U/L (10-53) (ALT/SGPT) Albumin 2.8 GM/DL 2.7 GM/DL (3.4-5.0) (3.4-5.0) Urine Turbidity HAZY (CLEAR) Urine Protein 300 mg/dL (NEG-TRACE) Urine Ketones TRACE mg/dL (NEG) Urine Occult Blood MOD (NEG) Urine RBC 8 /hpf (0-3) Urine WBC 17 /hpf (0-5) Urine Mucus FEW /lpf (OCC) Platelet Estimate LOW (NORMAL) Ovalocytes 1+ (NORMAL) Crenated Cell 1+ (NORMAL) Calcium Level 8.2 MG/DL 8.1 MG/DL (8.5-10.1) (8.5-10.1) Test 12/06/16 12/06/16 04:58 07:00 Urine Protein 100 mg/dL (NEG-TRACE) Urine Occult Blood MOD (NEG) Urine RBC 5 /hpf (0-3) Urine Mucus FEW /lpf (OCC) Urine Microalbumin/Creatinine 1780 MG/G CRE Ratio (0-30) Red Blood Count 2.72 MIL/MM3 (4.00-5.30) Hemoglobin 8.9 GM/DL (11.6-15.3) Hematocrit 25.6 % (35.0-46.0) Red Cell Distribution Width 20.7 % (11.6-17.2) Platelet Count 25 TH/MM3 (150-450) Blood Urea Nitrogen 27 MG/DL (7-18) Creatinine 1.24 MG/DL (0.50-1.00) Estimat Glomerular Filtration 44 ML/MIN (>89) Rate Calcium Level 8.1 MG/DL (8.5-10.1) Imaging Last Impressions Upper Extremity Ultrasound 12/04/16 0000 Signed Impressions: Service Date/Time: Sunday, December 04, 2016 23:08 - CONCLUSION: Nonocclusive superficial vein thrombosis of the basilic vein distally. No evidence of left upper extremity DVT. Kodi Magdaleno MD Lower Extremity Ultrasound 12/04/16 0000 Signed Impressions: Service Date/Time: Sunday, December 04, 2016 22:46 - CONCLUSION: No evidence of lower extremity DVT on the right or left. Kodi Magdaleno MD Chest X-Ray 12/03/16 1437 Signed Impressions: Service Date/Time: Saturday, December 03, 2016 15:22 - CONCLUSION: Small effusions and mild consolidation of both bases. Moy Garcia MD PE at Discharge GENERAL: This is a well-nourished, well-developed patient, in no apparent distress. CARDIOVASCULAR: Normal rate and regular rhythm without murmurs, gallops, or rubs. RESPIRATORY: Good respiratory efforts. Diminished breath sounds at the bases bilaterally. No wheezing. GASTROINTESTINAL: Abdomen soft, non-tender, non-distended. Normal active bowel sounds MUSCULOSKELETAL: 2+ bilateral LE pitting edema. NEURO: Alert & Oriented x4 to person, place, time, situation. Moves all ext x4 PSYCH: Appropriate mood and affect. Pt update on day of discharge Patient reports she is feeling better. She is anxious to go home. Shortness of breath has improved. Lower extremity edema has improved as well with the stockings. Hospital Course 61-year-old female with past medical history of pancreatic cancer on chemotherapy and hypertension presents with a 4 day history of cough, nausea/ vomiting, and diarrhea. Evaluation and treatment course detailed below: Sepsis on admission: suspect secondary to pneumonia. CXR with effusion and consolidation. Resolving. Patient treated with IV antibiotics and transition to oral antibiotics. Blood cultures were negative. PAULA: Cr 1.6 on admission, no previous labs to compare however no reported hx of CKD. Patient was followed by nephrology. Renal function stabilizes. She was started on losartan. She will follow-up outpatient. Peripheral edema: Lower extremity Dopplers were negative. A 2-D echo revealed diastolic dysfunction with preserved LVEF. Lower extremity edema improved with stockings. Patient advised to follow-up outpatient. Intractable Nausea/Vomiting/Diarrhea: Resolved Abnormal urinalysis: Urine cultures negative. Hypertensive Urgency on admission: BP 208/102 in the ED. BP still uncontrolled after adding Nifedipine which also taught could contribute to the edema. Nifedipine was discontinued and the patient was started on losartan. Metoprolol dose increased to 50 mg twice a day. Blood pressure improved. Patient is advised again to follow up outpatient for further titration of antihypertensives. Pancreatic Cancer: s/p resection. Oncologist, Dr. Cam followed the patient. She is to follow-up with him outpatient for restaging. Oral candidiasis: Diflucan and magic mouthwash. Elevated LFT's: Probably secondary to chemo or sepsis. Resolved. Normocytic Anemia: likely secondary to cancer/chemotherapy. H&H stable. No active signs of bleeding. Left basilic vein superficial thrombosis: Hematology/Oncology followed the patient. She was treated with Lovenox for DVT prophylaxis and advised to use warm compress over the superficial thrombosis. Elevated Blood Glucose: random glucose 135 upon arrival. HgbA1c 6.0. Pt Condition on Discharge: Good Discharge Disposition: Discharge Home Discharge Time: <= 30 minutes Discharge Instructions DIET: Follow Instructions for: Heart Healthy Diet Activities you can perform: Regular-No Restrictions Follow up Referrals: Appointment for Follow Up - 2 Weeks with PCP Nephrology - 2 Weeks with Hayden Villalta MD New Medications: Azithromycin (Azithromycin) 250 Mg Tab 250 MG PO DAILY Infection #2 Ref 0 TAB Cefuroxime (Ceftin) 500 Mg Tab 500 MG PO BID Infection #14 Ref 0 TAB Fluconazole (Diflucan) 100 Mg Tab 100 MG PO DAILY #7 TAB Losartan (Cozaar) 25 Mg Tab 25 MG PO DAILY #30 TAB Changed Medications: Metoprolol Tartrate (Metoprolol Tartrate) 50 Mg Tab 50 MG PO BID #60 Ref 0 TAB (Changed from: Metoprolol Tartrate 25 Mg Tab 25 Mg PO BID #60 TAB Ref 0) Continued Medications: Aspirin (Aspirin) 81 Mg Chew 81 MG CHEW DAILY Ref 0 TAB Calcium Carbonate (Antacid) (Calcium Carbonate (Antacid)) 500 Mg Chew 750 MG CHEW PRN HEARTBURN Ref 0 TAB Cholecalciferol (Vitamin D-400) 400 Unit Chew 400 UNITS CHEW DAILY Nutritional Supplement #1 Ref 0 BOTTLE Fish Oil-Cholecalciferol (Bland-3 Fish Oil/Vitamin) 1,000-1,000 Mg Cap 1 CAP PO DAILY Nutritional Supplement Ref 0 CAP Folic Acid (Folic Acid) 400 Mcg Tab 400 MCG PO DAILY Nutritional Supplement Ref 0 TAB Lactobacillus Acidophilus (Probiotic) 1 Cap Cap 1 CAP PO TIDAC Nutritional Supplement #90 Ref 0 CAP Multiple Vitamin (Multiple Vitamin) 1 Tab 1 TAB PO DAILY Nutritional Supplement Ref 0 TAB Pancreatin (Pancreatin) 325 Mg Tab 500 MG PO TIDAC Polyethylene Glycol-Propylene Glycol Opth Drp (Systane Opth Drops) 0.4-0.3% Soln 1-2 DROP EACH EYE PRN PRN DRY EYE #1 Ref 0 BOTTLE Juancho Bustamante MD Dec 06, 2016 09:00
--- NOTE | 2016-12-06 09:00 | HHI.DCPOC ---
Discharge Care Plan Diagnosis: (1) Pneumonia (2) PAULA (acute kidney injury) (3) Accelerated hypertension (4) Sepsis (5) Pancreatic cancer Goals to Promote Your Health * To prevent worsening of your condition and complications * To maintain your health at the optimal level Directions to Meet Your Goals Take your medications as prescribed Follow your dietary instruction Follow activity as directed Keep your appointments as scheduled Take your immunizations and boosters as scheduled If your symptoms worsen call your PCP, if no PCP go to Urgent Care Center or Emergency Room Smoking is Dangerous to Your Health. Avoid second hand smoke Call the 24-hour hour crisis hotline for domestic abuse at Juancho Bustamante MD Dec 06, 2016 09:00
[2016-12-06] MEDS: NYSTAT/DIPHENHY/LIDO MOUTHWASH (Adult) 120ML SWISH-SWAL SCH (09:43)
[2016-12-06] MEDS: LOSARTAN 25 MG TAB PO SCH (09:44)
[2016-12-06] MEDS: ASPIRIN 81 MG CHEW TAB CHEW SCH (09:44)
[2016-12-06] MEDS: CHOLECALCIFEROL (VIT D3) 400 UNIT TAB PO SCH (09:44)
[2016-12-06] MEDS: LACTOBACILLUS ACIDOPHILUS TAB PO SCH (09:44)
[2016-12-06] MEDS: METOPROLOL TARTRATE 50 MG TAB PO SCH (09:44)
[2016-12-06] MEDS: FOLIC ACID 1 MG TAB PO SCH (09:44)
[2016-12-06] MEDS: ENOXAPARIN SODIUM 40 MG/0.4 ML SYRINGE SQ SCH (09:45)
[2016-12-06 10:07] VITALS: O2SAT 98
--- NOTE | 2016-12-06 11:28 | HHI.NPPN ---
Subjective Renal Failure: Acute Interval History Ambulating in hallway with therapy. Edema is better. (Aleida Underwood) Review of Systems Cardiovascular Cardiac: Edema (Aleida Underwood) Objective Data Data 12/05/16 12/06/16 19:00 07:00 Intake Total 720 ml 830 ml Balance 720 ml 830 ml Intake Oral 720 ml 480 ml IV Total 350 ml # Voids 4 4 Vital Signs Date Time Temp Pulse Resp B/P Pulse Ox O2 Delivery O2 Flow Rate FiO2 12/06/16 10:07 98 Nasal Cannula 21 12/06/16 08:00 97.6 88 18 167/87 97 12/06/16 05:37 96 Nasal Cannula 2.00 12/06/16 04:00 97.5 86 17 156/89 96 12/06/16 00:00 98.3 79 17 149/80 98 12/05/16 20:17 99 164/83 12/05/16 18:45 180/86 12/05/16 17:00 97.3 102 98 12/05/16 12:00 98.0 91 18 192/96 95 12/05/16 11:45 97 Nasal Cannula 2.00 (Aleida Underwood) -: 12/06/16 0700 12/06/16 0700 Imaging Last 72 hours Impressions Upper Extremity Ultrasound 12/04/16 0000 Signed Impressions: Service Date/Time: Sunday, December 04, 2016 23:08 - CONCLUSION: Nonocclusive superficial vein thrombosis of the basilic vein distally. No evidence of left upper extremity DVT. Kodi Magdaleno MD Lower Extremity Ultrasound 12/04/16 0000 Signed Impressions: Service Date/Time: Sunday, December 04, 2016 22:46 - CONCLUSION: No evidence of lower extremity DVT on the right or left. Kodi Magdaleno MD Chest X-Ray 12/03/16 1437 Signed Impressions: Service Date/Time: Saturday, December 03, 2016 15:22 - CONCLUSION: Small effusions and mild consolidation of both bases. Moy Garcia MD (Aleida Underwood) Physical Exam General Appearance: Well Developed, Well Nourished, No Acute Distress (Aleida Underwood) Ears & Nose Ears & Nose Exam: Auditory Canals Normal (Aleida Underwood) Throat Throat Exam: Oral Mucosa [place] & Moist (Aleida Underwood) Pulmonary Resp Exam: Clear Bilaterally, Breath Sounds Equal (Aleida Underwood) Cardiology CV Exam: Regular, Normal Sinus Rhythm (Aleida Underwood) Gastrointestinal/Abdomen GI Exam: Soft, Non-Tender (Aleida Underwood) Musculoskeletal MS Exam: Joints Intact, Normal Gait, Normal Tone (Aleida Underwood) Integumentary Skin Exam: Clear, Warm, Dry (Aleida Underwood) Extremeties Extremities Exam: Pedal Pulses Palpable, Trace Edema (Aleida Underwood) Neurologic Neuro Exam: Alert, Awake, Oriented, Speech Clear, Moving All Extremities ( Aleida Underwood) Assessment/Plan Discussed Condition With: Patient Problem List: (1) PAULA (acute kidney injury) Plan: in a pt with no labs for comparison renal function is stable PAULA due to dehydration no electrolyte concerns she also 1.2g proteinuria, unknown etiology but initially thought to be due to UTI she is on ARB; we will follow her in outpatient setting to follow up and monitor renal function she does have lower extremity edema improved, off nifedipine/amlodipine no DVT, has compression stockings, (2) Accelerated hypertension Plan: BP improved on metoprolol BID and losartan (3) Hyponatremia Plan: likely hypovolemic hyponatremia due to vomiting corrected (4) Pancreatic cancer Plan: oncology evaluated follow up outpatient Plan she is cleared for discharge (Aleida Underwood) Plan patient was seen and examined. She is stable from renal standpoint. She has proteinuria, we will follow her in the office. Avoid Nifedipine/Amlodipine. Renal function has improved. (Hayden Villalta MD) Aleida Underwood Dec 06, 2016 11:27 Hayden Villalta MD Dec 06, 2016 20:21
== END 2016-12-06 11:56 | disposition home or self-care (01) | DRG 871 ==
LOC: NEPC 14:19 → NEDA 17:13 → HOCB 19:49
PROVIDERS: ADMIT Family Medicine; ATTEND Family Medicine
DX: A41.9 Sepsis, unspecified organism (principal); J18.9 Pneumonia, unspecified organism; N17.9 Acute kidney failure, unspecified; C25.1 Malignant neoplasm of body of pancreas; E87.1 Hypo-osmolality and hyponatremia; D64.81 Anemia due to antineoplastic chemotherapy; I82.612 Acute embolism and thrombosis of superficial veins of left upper extremity; B37.0 Candidal stomatitis; E86.0 Dehydration; N30.01 Acute cystitis with hematuria; R60.0 Localized edema; R11.2 Nausea with vomiting, unspecified; R19.7 Diarrhea, unspecified; I16.0 Hypertensive urgency; D63.0 Anemia in neoplastic disease; I10 Essential (primary) hypertension; R74.8 Abnormal levels of other serum enzymes; R73.9 Hyperglycemia, unspecified; I51.89 Other ill-defined heart diseases; T45.1X5A Adverse effect of antineoplastic and immunosuppressive drugs, initial encounter; Z88.8 Allergy status to other drugs, medicaments and biological substances; Z88.5 Allergy status to narcotic agent
CPT/HCPCS: 71020; 76937; 80048; 80053; 81001; 82043; 83036; 83605; 83690; 83735; 85025; 85027; 87040; 87086; 87804; 93005; 93306; 93970; 93971; 94620; 94640; 94664; 96361; 96374; 96375; J0456; J0696; J1450; J1650; J2405; J2765; J7030; J7050

== ENCOUNTER 2017-03-17 12:19 | Inpatient (IN) | payer OTHER ==
[~2017-03-17] VITALS: Ht 165.1 cm; Wt 50.0 kg
[~2017-03-17 12:19] MED LIST: ASPI81CH CHEW; AZIT250T3 PO; CALC500C16 CHEW; CEFT500T3 PO; COZA25TA PO; DIFL100T PO; FOLI400T PO; LACTCAP8 PO; METO50TA PO; MULTTAB67 PO; OMEGCAP PO; SYSTSOL EACH EYE; VITA400C59 CHEW; [UNRECOGNIZED DRUG - CODE] PO
[2017-03-17 12:21] VITALS: BP 215/109; PULSE 77; RESP 17; TEMP 98.1; O2SAT 98
[2017-03-17 12:34] VITALS: BP 191/90; PULSE 68; RESP 14; TEMP 98.1; O2SAT 97
[2017-03-17] MEDS ORDERED: CHOL1CAP8 PO (12:49)
[2017-03-17] MEDS ORDERED: CLON0.1T PO (12:54)
[2017-03-17] MEDS ORDERED: DILT120T PO (12:54)
[2017-03-17] MEDS ORDERED: CLON0.2T PO (12:54)
[2017-03-17] MEDS ORDERED: HYDR-3801 PO (12:55)
[2017-03-17] MEDS ORDERED: DOCU100C PO (12:56)
[2017-03-17] MEDS ORDERED: LORA-392 PO (12:59)
[2017-03-17] MEDS ORDERED: [UNRECOGNIZED DRUG - CODE] PO (12:59)
[2017-03-17] MEDS ORDERED: ONDA1TAB17 PO (12:59)
[2017-03-17] MEDS ORDERED: ALPR.5 PO (12:59)
--- NOTE | 2017-03-17 12:59 | PD ---
HPI Chief Complaint: Abdominal Pain Time Seen by Provider: 12:29 Travel History International Travel<30 days: No Contact w/Intl Traveler<30days: No Traveled to known affect area: No History of Present Illness HPI 62yo F with PMH of pancreatic cancer s/p surgery and last had chemo 11/29/16 and then subsequently had renal failure now on hemodialysis M/W/F presents to the ED with abdominal pain since yesterday. Pain is located in left lower abdomen and sharp and constant. +NBNB vomiting. Pt states last bowel movement was 3 days ago. States has history of constipation. Pt also feels abdomen is more distended. Denies any fever, cough, chest pain, sob, hematuria. Last hemodialysis on Sunday. PFSH Past Medical History Anxiety: Yes Cancer: Yes (pancreatic) Cardiovascular Problems: Yes (Mitral valve prolapse) Chemotherapy: Yes (pancreatic ca) Diabetes: No Genitourinary: No Musculoskeletal: No Neurologic: No Reproductive: No Respiratory: No ?: Not Past Surgical History Abdominal Surgery: Yes (pancreas resection; spleenectomy, gallbladder) Other Surgery: Yes Social History Alcohol Use: No Tobacco Use: No Substance Use: No Allergies-Medications (Allergen,Severity, Reaction): Coded Allergies: Codeine (Verified Allergy, Severe, Dizziness, 03/17/17) Dilaudid (Verified Allergy, Severe, Confusion, 03/17/17) Phenergan (Verified Allergy, Severe, Swelling, 03/17/17) Amlodipine (Verified Allergy, Intermediate, 03/17/17) Reported Meds & Prescriptions Reported Meds & Active Scripts Active Metoprolol Tartrate 50 Mg Tab 50 Mg PO BID Reported Pancreatin 1 Gm Powder 500 Mg PO Ativan (Lorazepam) 0.5 Mg Tab 0.5 Mg PO Q4H PRN Xanax (Alprazolam) 0.5 Mg Tab 0.5 Mg PO Q6H PRN Ondansetron (Ondansetron HCl) 8 Mg Tab 8 Mg PO TID Docusate Sodium 100 Mg Cap 100 Mg PO DAILY Hydralazine (Hydralazine HCl) 100 Mg Tab 25 Mg PO Q6HR Take with meals Diltiazem (Diltiazem HCl) 120 Mg Tab 120 Mg PO DAILY Clonidine (Clonidine HCl) 0.1 Mg Tab 0.15 Mg PO TID Vitamin D3 (Cholecalciferol) 400 Unit Cap 500 Units PO DAILY Systane Opth Drops (Polyethylene Glycol-Propylene Glycol Opth Drp) 0.4-0.3% Soln 1-2 Drop EACH EYE PRN PRN Calcium Carbonate (Antacid) 500 Mg Chew 750 Mg CHEW PRN Probiotic (Lactobacillus Acidophilus) 1 Cap Cap 1 Cap PO TIDAC Aspirin 81 Mg Chew 81 Mg CHEW DAILY Folic Acid 400 Mcg Tab 400 Mcg PO DAILY Review of Systems Except as stated in HPI: all other systems reviewed are Neg Physical Exam Narrative GENERAL: 62yo F in mild distress. SKIN: Focused skin assessment warm/dry. HEAD: Atraumatic. Normocephalic. EYES: Pupils equal and round. No scleral icterus. No injection or drainage. ENT: No nasal bleeding or discharge. Mucous membranes pink and moist. NECK: Trachea midline. No JVD. CARDIOVASCULAR: Regular rate and rhythm. No murmur appreciated. RESPIRATORY: No accessory muscle use. Clear to auscultation. Breath sounds equal bilaterally. GASTROINTESTINAL: Abdomen soft, +TTP LLQ. No rebound tenderness or guarding. MUSCULOSKELETAL: No obvious deformities. No clubbing. No cyanosis. +edema. NEUROLOGICAL: Awake and alert. No obvious cranial nerve deficits. Motor grossly within normal limits. Normal speech. PSYCHIATRIC: Appropriate mood and affect; insight and judgment normal. Data Data Last Documented VS Vital Signs Date Time Temp Pulse Resp B/P Pulse Ox O2 Delivery O2 Flow Rate FiO2 03/17/17 15:35 80 15 179/85 95 Room Air 03/17/17 12:34 98.1 Orders Complete Blood Count With Diff (03/17/17 12:45) Comprehensive Metabolic Panel (03/17/17 12:45) Lipase (03/17/17 12:45) Prothrombin Time / Inr (Pt) (03/17/17 12:45) Act Partial Throm Time (Ptt) (03/17/17 12:45) Urinalysis - C+S If Indicated (03/17/17 12:45) Ct Abd/Pel W/O Iv Contrast (03/17/17 12:45) Iv Access Insert/Monitor (03/17/17 12:45) Ecg Monitoring (03/17/17 12:45) Oximetry (03/17/17 12:45) Sodium Chloride 0.9% Flush (Ns Flush) (03/17/17 12:45) Hydralazine Inj (Apresoline Inj) (03/17/17 13:30) Vascular Access Team Consult/P PRN (03/17/17 13:32) Vascular Poc Ultrasound (03/17/17 ) Ondansetron Odt (Zofran Odt) (03/17/17 13:45) Ciprofloxacin 400 Mg Premix (Cipro 400 M (03/17/17 15:15) Metronidazole 500 Mg Inj (Flagyl 500 Mg (03/17/17 15:15) Blood Culture (03/17/17 15:30) Lactic Acid Sepsis Protocol (03/17/17 15:30) Ondansetron Inj (Zofran Inj) (03/17/17 16:00) Vital Signs (Adult) IMELDA.Q4H (03/17/17 15:58) Complete Blood Count With Diff (03/18/17 06:00) Basic Metabolic Panel (Bmp) (03/18/17 06:00) Ceftriaxone Inj (Rocephin Inj) (03/17/17 16:00) Metronidazole 500 Mg Inj (Flagyl 500 Mg (03/17/17 23:00) Ondansetron Inj (Zofran Inj) (03/17/17 16:00) Admit Order (Ed Use Only) (03/17/17 16:10) Labs Laboratory Tests Test 03/17/17 03/17/17 14:54 15:45 White Blood Count 19.8 TH/MM3 Red Blood Count 3.74 MIL/MM3 Hemoglobin 11.2 GM/DL Hematocrit 34.4 % Mean Corpuscular Volume 91.8 FL Mean Corpuscular Hemoglobin 30.0 PG Mean Corpuscular Hemoglobin 32.6 % Concent Red Cell Distribution Width 16.0 % Platelet Count 440 TH/MM3 Mean Platelet Volume 9.9 FL Neutrophils (%) (Auto) 95.1 % Lymphocytes (%) (Auto) 1.4 % Monocytes (%) (Auto) 3.5 % Eosinophils (%) (Auto) 0.0 % Basophils (%) (Auto) 0.0 % Neutrophils # (Auto) 18.8 TH/MM3 Lymphocytes # (Auto) 0.3 TH/MM3 Monocytes # (Auto) 0.7 TH/MM3 Eosinophils # (Auto) 0.0 TH/MM3 Basophils # (Auto) 0.0 TH/MM3 CBC Comment AUTO DIFF Differential Comment AUTO DIFF CONFIRMED Toxic Vacuolation PRESENT Platelet Estimate HIGH Platelet Morphology Comment NORMAL Keratocytes 1+ Prothrombin Time 10.2 SEC Prothromb Time International 0.9 RATIO Ratio Activated Partial 25.0 SEC Thromboplast Time Sodium Level 132 MEQ/L Potassium Level 3.6 MEQ/L Chloride Level 97 MEQ/L Carbon Dioxide Level 26.7 MEQ/L Anion Gap 8 MEQ/L Blood Urea Nitrogen 20 MG/DL Creatinine 2.83 MG/DL Estimat Glomerular Filtration 17 ML/MIN Rate Random Glucose 105 MG/DL Calcium Level 9.6 MG/DL Total Bilirubin 0.5 MG/DL Aspartate Amino Transf 26 U/L (AST/SGOT) Alanine Aminotransferase 15 U/L (ALT/SGPT) Alkaline Phosphatase 87 U/L Total Protein 6.5 GM/DL Albumin 2.8 GM/DL Lipase 101 U/L Lactic Acid Level 0.8 mmol/L MDM Medical Decision Making Medical Screen Exam Complete: Yes Emergency Medical Condition: Yes Differential Diagnosis Obstruction vs. constipation vs. colitis vs. malignancy Narrative Course 62yo F with abdominal pain, vomiting. It was difficult obtaining vascular access so pt given zofran ODT first. Pt got IV from vascula access team. Labs reviewed, leukocytosis at 19.8. H/H 11.2/34.4 which is better than baseline. BUN/creatinine elevated at 20/2.83. Pt is currently on hemodialysis, last time was Sunday. CTa/p showed diffuse colonic thickening. Pt given cipro and flagyl. Pt reevaluated at bedside and was still vomiting so given zofran 4mg IV. BP had improved after hydralazine 10mg IV. Discussed with Dr. Baird and accepted to his service. Critical Care Narrative Aggregate critical care time was 50 minutes. Time to perform other separately billable procedures was not included in the critical care time. My time did not include minutes spent treating any other patients simultaneously or on activities that did not directly contribute to the patient's treatment. The services I provided to this patient were to treat and/or prevent clinically significant deterioration that could result in: cardiovascular collapse or . I provided critical care services requiring my management, as noted below: Chart data review, documentation time, medication orders and management, vital sign assessments/reviewing monitor data, ordering and reviewing lab tests, ordering and interpreting/reviewing x-rays and diagnostic studies, care of the patient and discussion of the patient with the admitting physicians. Diagnosis Primary Impression: Colitis Admitting Information Admitting Physician Requests: it Katherine Murcia DO Mar 17, 2017 12:59
--- NOTE | 2017-03-17 13:24 | RADRPT ---
EXAM DATE/TIME: 03/17/2017 12:58 [facility] COMPARISON: No previous studies available for comparison. INDICATIONS : Left lower abdomen pain and constipation for three days. ORAL CONTRAST: No oral contrast ingested. RADIATION DOSE: 4.51 CTDIvol (mGy) MEDICAL HISTORY : Carcinoma, pancreas. SURGICAL HISTORY : pancreas resection, splenectomy, cholecystectomy ENCOUNTER: Initial ACUITY: 3 days PAIN SCALE: 8/10 LOCATION: Left lower quadrant TECHNIQUE: Volumetric scanning of the abdomen and pelvis was performed. Using automated exposure control and ad justment of the mA and/or kV according to patient size, radiation dose was kept as low as reasonably achievable to obtain optimal diagnostic quality images. DICOM format image data is available electro nically for review and comparison. FINDINGS: LOWER LUNGS: There are mild bilateral pleural effusions being worse on the right. There is accompanying atelectasi s at the lung bases. LIVER: Homogeneous density without lesion. There is no dilation of the biliary tree. Clips are seen from pr ior cholecystectomy. SPLEEN: The spleen is absent. PANCREAS: Pancreatic body and tail are absent. The pancreatic head and uncinate process are normal in size. KIDNEYS: Normal in size and shape. There is no mass, stone, or hydronephrosis. ADRENAL GLANDS: Within normal limits. VASCULAR: There is no aortic aneurysm. Arterial calcifications are present. BOWEL/MESENTERY: There is diffuse thickening of the colon. The thickening is most prominent at the transverse colon. T here is scattered diverticula in the sigmoid region. There is mild ascites present. ABDOMINAL WALL: There is a minimal midline hernia seen just above the umbilicus containing a small amount of mesenter ic fat. Patient status post midline abdominal incision. RETROPERITONEUM: There is no lymphadenopathy. BLADDER: No wall thickening or mass. REPRODUCTIVE: Within normal limits. INGUINAL: There is no lymphadenopathy or hernia. MUSCULOSKELETAL: There is degenerative change the lumbar spine. CONCLUSION: 1. Diffuse colonic thickening the most prominent in the sigmoid region likely related to colitis. 2. Sigmoid colon diverticula without significant inflammatory change seen around the diverticula. 3. Mild ascites. 4. Mild bilateral pleural effusions. 5. Status post splenectomy and distal pancreatectomy. Moy Kan MD on March 17, 2017 at 13:13 Board Certified Radiologist. This report was verified electronically.
[2017-03-17] MEDS ORDERED: hydrALAZINE HCL 20 MG/ML VIAL IV PUSH ONE (13:30)
[2017-03-17] MEDS ORDERED: ONDANSETRON ODT 4 MG TAB PO ONE (13:45)
[2017-03-17 14:59] VITALS: BP 179/85; PULSE 76; RESP 16; O2SAT 95
[2017-03-17 15:14] LABS: AUTOMATED NEUTROPHIL # 18.8 TH/MM3 (1.8-7.7); HEMATOCRIT 34.4 % (35.0-46.0); LYMPH % 1.4 % (9.0-44.0); LYMPHOCYTE # 0.3 TH/MM3 (1.0-4.8); MEAN CELL VOLUME 91.8 FL (80.0-100.0); MEAN CORPUSCULAR HGB CONC 32.6 % (32.0-36.0); MONO % 3.5 % (0.0-8.0); NEUT % 95.1 % (16.0-70.0); PLATELET COUNT 440 TH/MM3 (150-450); RED BLOOD COUNT 3.74 MIL/MM3 (4.00-5.30); WHITE BLOOD COUNT 19.8 TH/MM3 (4.0-11.0)
[2017-03-17 15:15] LABS: HEMO FLAGS AUTO DIFF
[2017-03-17] MEDS ORDERED: metroNIDAZOLE 500 MG INJ 100 ML IV ONE (15:15)
[2017-03-17] MEDS ORDERED: CIPROFLOXACIN 400 MG PREMIX 200 ML IV ONE (15:15)
[2017-03-17 15:24] LABS: INTERNATIONAL NORMALIZED RATIO 0.9 RATIO; PROTHROMBIN TIME - PATIENT 10.2 SEC (9.8-11.6)
[2017-03-17 15:35] VITALS: BP 179/85; PULSE 80; RESP 15; O2SAT 95
[2017-03-17 15:37] LABS: ALKALINE PHOSPHATASE 87 U/L (45-117); TOTAL BILIRUBIN ADULT 0.5 MG/DL (0.2-1.0)
[2017-03-17 15:45] LABS: ALT (GPT) 15 U/L (10-53); ANION GAP 8 MEQ/L (5-15); AST (GOT) 26 U/L (15-37); BICARBONATE 26.7 MEQ/L (21.0-32.0); BLOOD UREA NITROGEN 20 MG/DL (7-18); CHLORIDE 97 MEQ/L (98-107); GLOMERULAR FILTRATION RATE 17 ML/MIN (>89); POTASSIUM 3.6 MEQ/L (3.5-5.1); SODIUM (NA) 132 MEQ/L (136-145)
[2017-03-17 15:51] LABS: KERATOCYTES 1+ (NORMAL); PLATELET ESTIMATE SMEAR HIGH (NORMAL); PLATELET MORPHOLOGY NORMAL (NORMAL); SCAN/DIFF AUTO DIFF CONFIRMED; TOXIC VACUOLATION PRESENT (NONE SEEN)
[2017-03-17] MEDS ORDERED: ONDANSETRON HCL 4 MG/2 ML VIAL IV PUSH ONE (16:00)
[2017-03-17] MEDS ORDERED: SODIUM CHLOR 0.9% 1000 ML INJ 1,000 ML IV ONE (16:15)
[2017-03-17] MEDS ORDERED: MORPHINE SULFATE 4 MG/ML INJ IV PUSH PRN (16:15)
[2017-03-17] MEDS ORDERED: cloNIDine HCL 0.1 MG TAB PO PRN (16:15)
[2017-03-17] MEDS ORDERED: ALPRAZolam 0.5 MG TAB PO PRN (16:15)
--- NOTE | 2017-03-17 16:24 | HHI.HP ---
[facility] Service [facility] Primary Care Physician Antonio Silva, Admission Diagnosis Sepsis secondary to colitis Diagnoses: (1) Colitis Diagnosis: Principal Chief Complaint: abdominal pain Travel History International Travel<30 Days: No Contact w/Intl Traveler <30 Da: No Traveled to Known Affected Are: No History of Present Illness patient is a 62 y/o female with history of pancreatic cancer and ESRD-on HD presented to ER with abdominal pain. she says that the pain started last night. pain is colicky in nature and localized to LLQ with no radiation. pain is severe in intensity and is worse with eating and movement. pain was associated with nausea and emesis- she denies any fever or chills but she says that she was constipated a few days ago and needed disimpaction at the time. Review of Systems Constitutional: DENIES: Fever, Weight loss, Chills, Night Sweats Eyes: DENIES: Blurred vision, Diplopia, Vision loss, Double Vision Ears, nose, mouth, throat: DENIES: Tinnitus, Vertigo, Throat pain, Epistaxis Respiratory: DENIES: Apneas, Cough, Snoring, Wheezing, Hemoptysis, Sputum production, Shortness of breath Cardiovascular: DENIES: Chest pain, Palpitations, Syncope, Dyspnea on Exertion , PND, Lower Extremity Edema, Orthopnea, Claudication Gastrointestinal: COMPLAINS OF: Abdominal pain, Constipation, Nausea, Vomiting , DENIES: Black stools, Bloody stools, Diarrhea, Difficulty Swallowing, Anorexia Genitourinary: DENIES: Urinary frequency, Urgency, Hematuria, Dysuria Musculoskeletal: DENIES: Joint pain, Muscle aches, Stiffness, Joint Swelling Integumentary: DENIES: Rash Neurologic: DENIES: Abnormal gait, Headache, Localized weakness, Paresthesias, Seizures, Speech Problems, Tremor, Poor Balance Psychiatric: DENIES: Anxiety, Confusion, Mood changes, Depression, Hallucinations, Agitation, Suicidal Ideation, Homicidal Ideation, Delusions Past Family Social History Past Medical History ESRD-on HD pancreatic cancer hypertension Past Surgical History pancreatic surgery and cholecystectomy splenectomy Reported Medications Pancreatin 1 Gm Powder 500 Mg PO Ativan (Lorazepam) 0.5 Mg Tab 0.5 Mg PO Q4H PRN Xanax (Alprazolam) 0.5 Mg Tab 0.5 Mg PO Q6H PRN Ondansetron (Ondansetron HCl) 8 Mg Tab 8 Mg PO TID Docusate Sodium 100 Mg Cap 100 Mg PO DAILY Hydralazine (Hydralazine HCl) 100 Mg Tab 25 Mg PO Q6HR Take with meals Diltiazem (Diltiazem HCl) 120 Mg Tab 120 Mg PO DAILY Clonidine (Clonidine HCl) 0.1 Mg Tab 0.15 Mg PO TID Vitamin D3 (Cholecalciferol) 400 Unit Cap 500 Units PO DAILY Systane Opth Drops (Polyethylene Glycol-Propylene Glycol Opth Drp) 0.4-0.3% Soln 1-2 Drop EACH EYE PRN PRN Calcium Carbonate (Antacid) 500 Mg Chew 750 Mg CHEW PRN Probiotic (Lactobacillus Acidophilus) 1 Cap Cap 1 Cap PO TIDAC Aspirin 81 Mg Chew 81 Mg CHEW DAILY Folic Acid 400 Mcg Tab 400 Mcg PO DAILY Allergies: Coded Allergies: Codeine (Verified Allergy, Severe, Dizziness, 03/17/17) Dilaudid (Verified Allergy, Severe, Confusion, 03/17/17) Phenergan (Verified Allergy, Severe, Swelling, 03/17/17) Amlodipine (Verified Allergy, Intermediate, 03/17/17) Active Ordered Medications Current Medications Sodium Chloride (NS Flush) 2 ml UNSCH PRN IV FLUSH FLUSH AFTER USING IV ACCESS ; Start 03/17/17 at 12:45 Hydralazine HCl (Apresoline Inj) 10 mg ONCE ONCE IV PUSH Last administered on 03/17/17 14:27; Start 03/17/17 at 13:30; Stop 03/17/17 at 13:31; Status DC Ondansetron HCl 4 mg 4 mg ONCE ONCE PO Last administered on 03/17/17 13:51; Start 03/17/17 at 13:45; Stop 03/17/17 at 13:46; Status DC Ciprofloxacin/ Dextrose 200 ml @ 200 mls/hr ONCE ONCE IV ; Start 03/17/17 at 15:15; Stop 03/17/17 at 16:14; Status DC Metronidazole (Flagyl 500 Mg Inj) 100 ml @ 100 mls/hr ONCE ONCE IV Last administered on 6/24/17at 15:33; Start 03/17/17 at 15:15; Stop 03/17/17 at 16:14 ; Status DC Ondansetron HCl 4 mg 4 mg ONCE ONCE IV PUSH Last administered on 03/17/17 15: 54; Start 03/17/17 at 16:00; Stop 03/17/17 at 16:01; Status DC Ceftriaxone Sodium 1000 mg/ Sodium Chloride 100 ml @ 200 mls/hr Q24H IV ; Start 03/17/17 at 16:00 Metronidazole (Flagyl 500 Mg Inj) 100 ml @ 100 mls/hr Q8H IV ; Start 03/17/17 at 23:00 Ondansetron HCl (Zofran Inj) 4 mg Q8HR PRN IV PUSH NAUSEA; Start 03/17/17 at 16 :00 Family History breast cancer in aunt. Social History no smoking or drinking. Physical Exam Vital Signs Vital Signs Date Time Temp Pulse Resp B/P Pulse Ox O2 Delivery O2 Flow Rate FiO2 03/17/17 15:35 80 15 179/85 95 Room Air 03/17/17 14:59 76 16 179/85 95 Room Air 03/17/17 12:34 97 Room Air 03/17/17 12:34 98.1 68 14 191/90 Room Air 03/17/17 12:21 98.1 77 17 215/109 98 Physical Exam GENERAL: This is a well-nourished, well-developed patient, in no apparent distress. SKIN: No rashes, ecchymoses or lesions. Cool and dry. HEAD: Atraumatic. Normocephalic. No temporal or scalp tenderness. EYES: Pupils equal round and reactive. Extraocular motions intact. No scleral icterus. No injection or drainage. ENT: Nose without bleeding, purulent drainage or septal hematoma. Throat without erythema, tonsillar hypertrophy or exudate. Uvula midline. Airway patent. NECK: Trachea midline. No JVD or lymphadenopathy. Supple, nontender, no meningeal signs. CARDIOVASCULAR: Regular rate and rhythm without murmurs, gallops, or rubs. RESPIRATORY: Clear to auscultation. Breath sounds equal bilaterally. No wheezes , rales, or rhonchi. GASTROINTESTINAL: Abdomen soft, LLQ tenderness, nondistended. No hepato- splenomegaly, or palpable masses. No guarding. MUSCULOSKELETAL: Extremities without clubbing, cyanosis, or edema. No joint tenderness, effusion, or edema noted. No calf tenderness. Negative Homans sign bilaterally. NEUROLOGICAL: Awake and alert. Cranial nerves II through XII intact. Motor and sensory grossly within normal limits. Five out of 5 muscle strength in all muscle groups. Normal speech. Laboratory Laboratory Tests Test 03/17/17 14:54 White Blood Count 19.8 Red Blood Count 3.74 Hemoglobin 11.2 Hematocrit 34.4 Mean Corpuscular Volume 91.8 Mean Corpuscular Hemoglobin 30.0 Mean Corpuscular Hemoglobin 32.6 Concent Red Cell Distribution Width 16.0 Platelet Count 440 Mean Platelet Volume 9.9 Neutrophils (%) (Auto) 95.1 Lymphocytes (%) (Auto) 1.4 Monocytes (%) (Auto) 3.5 Eosinophils (%) (Auto) 0.0 Basophils (%) (Auto) 0.0 Neutrophils # (Auto) 18.8 Lymphocytes # (Auto) 0.3 Monocytes # (Auto) 0.7 Eosinophils # (Auto) 0.0 Basophils # (Auto) 0.0 CBC Comment AUTO DIFF Differential Comment AUTO DIFF CONFIRMED Toxic Vacuolation PRESENT Platelet Estimate HIGH Platelet Morphology Comment NORMAL Keratocytes 1+ Prothrombin Time 10.2 Prothromb Time International 0.9 Ratio Activated Partial 25.0 Thromboplast Time Sodium Level 132 Potassium Level 3.6 Chloride Level 97 Carbon Dioxide Level 26.7 Anion Gap 8 Blood Urea Nitrogen 20 Creatinine 2.83 Estimat Glomerular Filtration 17 Rate Random Glucose 105 Calcium Level 9.6 Total Bilirubin 0.5 Aspartate Amino Transf 26 (AST/SGOT) Alanine Aminotransferase 15 (ALT/SGPT) Alkaline Phosphatase 87 Total Protein 6.5 Albumin 2.8 Lipase 101 Date/Time Procedure Status Source Growth 03/17/17 15:45 Aerobic Blood Culture Received Blood Peripheral Pending 03/17/17 15:45 Anaerobic Blood Culture Received Blood Peripheral Pending Result Diagram: 03/17/17 1454 03/17/17 1454 Imaging Last Impressions Abdomen/Pelvis CT 03/17/17 1245 Signed Impressions: Service Date/Time: Sunday, March 17, 2017 12:58 - CONCLUSION: 1. Diffuse colonic thickening the most prominent in the sigmoid region likely related to colitis. 2. Sigmoid colon diverticula without significant inflammatory change seen around the diverticula. 3. Mild ascites. 4. Mild bilateral pleural effusions. 5. Status post splenectomy and distal pancreatectomy. Moy Kan MD Assessment and Plan Assessment and Plan A/P - colitis start on clear liquid diet and gentle IV hydration in light of ESRD- continue with IV antibiotics- continue supportive care with antiemetics and analgesics as needed- consult GI -ESRD- on HD; will consult nephrology ( ) -hypertension; resume home meds- clonidine as needed- continue to monitor and adjust the regimen as needed. -DVT prophylaxis with subq heparin Discussed Condition With the patient. ER physician. Physician Certification 2 Midnight Certification Type: Admission for Inpatient Services Order for Inpatient Services The services are ordered in accordance with Medicare regulations or non- Medicare payer requirements, as applicable. In the case of services not specified as inpatient-only, they are appropriately provided as inpatient services in accordance with the 2-midnight benchmark. Estimated LOS (days): 2 days is the estimated time the patient will need to remain in the hospital, assuming treatment plan goals are met and no additional complications. Post-Hospital Plan: Home Travis Spencer MD Mar 17, 2017 16:24
[2017-03-17] MEDS: cefTRIAXone INJ 1,000 MG in SODIUM CHLORIDE 0.9% INJ 100 ML IV SCH (17:03)
[2017-03-17] MEDS ORDERED: PROCHLORPERAZINE INJ 10 MG/2 ML VIAL IV PUSH PRN (17:30)
[2017-03-17 17:49] VITALS: BP 222/108
[2017-03-17] MEDS: hydrALAZINE HCL 25 MG TAB PO SCH ×3 (18:00→23:32)
[2017-03-17] MEDS: PANTOPRAZOLE SODIUM 40 MG VIAL IV PUSH SCH (18:33)
[2017-03-17] MEDS: ONDANSETRON HCL 4 MG/2 ML VIAL IV PUSH PRN (18:33)
[2017-03-17 19:59] VITALS: BP 214/99; PULSE 80; RESP 20; TEMP 98.6; O2SAT 97
[2017-03-17] MEDS: ENALAPRILAT 1.25 MG/ML VIAL IV PUSH PRN (20:16)
[2017-03-17] MEDS: LORazepam 2 MG/ML VIAL IV PRN (20:47)
[2017-03-17] MEDS: METOPROLOL TARTRATE 50 MG TAB PO SCH (21:00)
[2017-03-17] MEDS ORDERED: HEPARIN SODIUM - SQ 10,000 UNITS/ML VIAL SQ SCH (21:00)
[2017-03-17] MEDS: metroNIDAZOLE 500 MG INJ 100 ML IV SCH (23:26)
[2017-03-18] VITALS (9 sets, daily range): BP systolic 152–182; BP diastolic 74–90; PULSE 74–88; RESP 16–18; TEMP 98–99.3; O2SAT 96–98
[2017-03-18] MEDS: hydrALAZINE HCL 25 MG TAB PO SCH ×3 (06:00→16:54)
[2017-03-18] MEDS: metroNIDAZOLE 500 MG INJ 100 ML IV SCH ×3 (06:10→21:51)
[2017-03-18 07:01] LABS: AUTOMATED NEUTROPHIL # 11.5 TH/MM3 (1.8-7.7); BASOPHIL % 0.4 % (0.0-2.0); HEMATOCRIT 32.8 % (35.0-46.0); HEMO FLAGS DIFF FINAL; LYMPH % 2.4 % (9.0-44.0); LYMPHOCYTE # 0.3 TH/MM3 (1.0-4.8); MEAN CELL VOLUME 90.5 FL (80.0-100.0); MEAN CORPUSCULAR HEMOGLOBIN 29.3 PG (27.0-34.0); MEAN CORPUSCULAR HGB CONC 32.4 % (32.0-36.0); MONO % 2.5 % (0.0-8.0); NEUT % 94.7 % (16.0-70.0); PLATELET COUNT 444 TH/MM3 (150-450); RED BLOOD COUNT 3.62 MIL/MM3 (4.00-5.30); RED CELL DISTRIBUTION WIDTH 15.7 % (11.6-17.2); WHITE BLOOD COUNT 12.2 TH/MM3 (4.0-11.0)
[2017-03-18 07:22] LABS: BICARBONATE 24.9 MEQ/L (21.0-32.0); POTASSIUM 3.4 MEQ/L (3.5-5.1)
[2017-03-18] MEDS: DILTIAZEM-CD 120 MG CAP ER PO SCH (08:36)
[2017-03-18] MEDS: METOPROLOL TARTRATE 50 MG TAB PO SCH ×2 (08:36→21:17)
[2017-03-18] MEDS: SODIUM CHLORIDE 0.9% FLUSH 10 ML FLUSH IV FLUSH PRN ×2 (08:38→21:46)
[2017-03-18 09:55] LABS: BACTERIA, URINE MOD /hpf; BLOOD, URINE SMALL (NEG); COMMENT (UR) CULTURE INDICATED; CULTURE IF INDICATED CULTURE INDICATED; GLUCOSE,URINE NEG (NEG); KETONE, URINE NEG (NEG); NITRITE,URINE NEG (NEG); PH, URINE 5.5 (5.0-8.5); SQUAMOUS EPITHELIAL CELL URINE 3 /hpf (0-5); TRANSITIONAL EPI CELLS, URINE 6 /hpf
[2017-03-18 09:57] LABS: URINE COLOR DARK-BROWN (YELLW/STRAW)
--- NOTE | 2017-03-18 10:18 | HHI.PR ---
Subjective Remarks f/u; colitis resting comfortably with no distress. overall feels and looks better today. nausea and vomiting has subsided. abdominal pain is better. no fever. Objective Vitals Vital Signs Date Time Temp Pulse Resp B/P Pulse Ox O2 Delivery O2 Flow Rate FiO2 03/18/17 08:08 98.1 80 18 163/74 97 03/18/17 04:18 98.9 82 16 161/79 97 03/18/17 00:00 98.0 84 16 179/86 98 03/17/17 19:59 98.6 80 20 214/99 97 03/17/17 17:49 222/108 03/17/17 15:35 80 15 179/85 95 Room Air 03/17/17 14:59 76 16 179/85 95 Room Air 03/17/17 12:34 97 Room Air 03/17/17 12:34 98.1 68 14 191/90 Room Air 03/17/17 12:21 98.1 77 17 215/109 98 I/O 03/17/17 03/17/17 03/17/17 03/18/17 03/18/17 03/18/17 07:00 15:00 23:00 07:00 15:00 23:00 Intake Total 265 ml 329 ml Output Total 100 ml Balance 165 ml 329 ml Intake IV Total 265 ml 329 ml Output Emesis 100 ml # Voids 0 1 # Bowel Movements 0 Result Diagram: 03/18/17 0635 03/18/17 0635 Imaging Last Impressions Abdomen/Pelvis CT 03/17/17 1245 Signed Impressions: Service Date/Time: Friday, March 17, 2017 12:58 - CONCLUSION: 1. Diffuse colonic thickening the most prominent in the sigmoid region likely related to colitis. 2. Sigmoid colon diverticula without significant inflammatory change seen around the diverticula. 3. Mild ascites. 4. Mild bilateral pleural effusions. 5. Status post splenectomy and distal pancreatectomy. Moy Kan MD Objective Remarks GENERAL: This is a well-nourished, well-developed patient, in no apparent distress. CARDIOVASCULAR: Regular rate and regular rhythm without murmurs, gallops, or rubs. RESPIRATORY: Clear to auscultation. Breath sounds equal bilaterally. No wheezes , rales, or rhonchi. GASTROINTESTINAL: Abdomen soft, mild LLQ tenderness, nondistended. Normal, active bowel sounds MUSCULOSKELETAL: Extremities without clubbing, cyanosis, or edema. NEURO: Alert & Oriented x4 to person, place, time, situation. Moves all ext x4 Procedures none Medications and IVs Current Medications Sodium Chloride (NS Flush) 2 ml UNSCH PRN IV FLUSH FLUSH AFTER USING IV ACCESS Last administered on 03/18/17 08:38; Start 03/17/17 at 12:45 Hydralazine HCl (Apresoline Inj) 10 mg ONCE ONCE IV PUSH Last administered on 03/17/17 14:27; Start 03/17/17 at 13:30; Stop 03/17/17 at 13:31; Status DC Ondansetron HCl 4 mg 4 mg ONCE ONCE PO Last administered on 03/17/17 13:51; Start 03/17/17 at 13:45; Stop 03/17/17 at 13:46; Status DC Ciprofloxacin/ Dextrose 200 ml @ 200 mls/hr ONCE ONCE IV Last administered on 03/17/17 16:51; Start 03/17/17 at 15:15; Stop 03/17/17 at 16:14; Status DC Metronidazole (Flagyl 500 Mg Inj) 100 ml @ 100 mls/hr ONCE ONCE IV Last administered on 03/17/17 15:33; Start 03/17/17 at 15:15; Stop 03/17/17 at 16:14 ; Status DC Ondansetron HCl 4 mg 4 mg ONCE ONCE IV PUSH Last administered on 03/17/17 15: 54; Start 03/17/17 at 16:00; Stop 03/17/17 at 16:01; Status DC Ceftriaxone Sodium 1000 mg/ Sodium Chloride 100 ml @ 200 mls/hr Q24H IV Last administered on 03/17/17 17:03; Start 03/17/17 at 16:00 Metronidazole (Flagyl 500 Mg Inj) 100 ml @ 100 mls/hr Q8H IV Last administered on 03/18/17 06:10; Start 03/17/17 at 23:00 Ondansetron HCl (Zofran Inj) 4 mg Q8HR PRN IV PUSH NAUSEA Last administered on 03/17/17 18:33; Start 03/17/17 at 16:00 Alprazolam (Xanax) 0.5 mg Q6H PRN PO ANXIETY; Start 03/17/17 at 16:15 Hydralazine HCl (Apresoline) 25 mg Q6HR PO ; Start 03/17/17 at 18:00 Metoprolol Tartrate (Lopressor) 50 mg BID PO Last administered on 03/18/17 08: 36; Start 03/17/17 at 21:00 Diltiazem HCl (Cardizem Cd) 120 mg DAILY PO Last administered on 03/18/17 08: 36; Start 03/18/17 at 09:00 Clonidine 0.1 mg 0.1 mg Q8HR PRN PO SBP> OR = 180, DBP> OR = 100; Start at 16:15 Sodium Chloride (NS 1000 ml Inj) 1,000 ml @ 40 mls/hr Q24H ONCE IV Last administered on 03/17/17 17:04; Start 03/17/17 at 16:15; Stop 03/18/17 at 16:14 Morphine Sulfate (Morphine Inj) 2 mg Q4HR PRN IV PUSH PAIN 1-10; Start at 16:15 Heparin Sodium (Porcine) (Heparin Inj) 5,000 units Q12HR SQ ; Start 03/17/17 at 21:00; Status Hold Pantoprazole Sodium (Protonix Inj) 40 mg Q24H IV PUSH Last administered on 03/17 18:33; Start 03/17/17 at 18:00 Prochlorperazine Edisylate (Compazine Inj) 5 mg Q8H PRN IV PUSH NAUSEA; Start 03/17/17 at 17:30 Enalaprilat (Vasotec Inj) 1.25 mg Q8H PRN IV PUSH SBP>180/DBP>100 Last administered on 03/17/17 20:16; Start 03/17/17 at 20:15 Lorazepam (Ativan Inj) 0.5 mg Q8H PRN IV ANXIETY Last administered on 20:47; Start 03/17/17 at 20:45 A/P Assessment and Plan A/P - colitis advance the diet slowly- continue with IV antibiotics- continue supportive care with antiemetics and analgesics as needed- consulted GI -one episode of hematemesis yesterday0 no recurrence H/H stable- continue PPI- GI evaluation as noted above -possible UTI- continue antibiotic- follow the UC. -ESRD- on HD; consulted nephrology ( ) -hypertension; resumed home meds- clonidine as needed- continue to monitor and adjust the regimen as needed. -DVT prophylaxis with SCD's Travis Spencer MD Mar 18, 2017 10:18
[2017-03-18] MEDS ORDERED: SODIUM CHLOR 0.9% 1000 ML INJ 1,000 ML IV PRN ×3 (12:33)
--- NOTE | 2017-03-18 12:33 | PD.CONS ---
HPI Service Nephrology Consult Requested By Dr. Spencer Reason for Consult ESRD management Primary Care Physician Antonio Silva, DO History of Present Illness Patient is 62-year-old white female with history of acute renal failure on dialysis with no recovery, she she has pancreatic cancer and was given partial pancreatectomy following which she required chemotherapy with Gemzar, she developed acute renal failure from which she failed to recover and remain on dialysis, she has a PermCath in the right side of the chest and goes on Sunday, Sunday and Sunday, the reason she is admitted is due to abdominal pain and severe constipation, CT scan showed colitis and she is going to have endoscopy and colonoscopy performed. She complained of maroon urine. She follows with Dr. Rajput Review of Systems Constitutional: COMPLAINS OF: Fatigue Gastrointestinal: COMPLAINS OF: Abdominal pain, Constipation Musculoskeletal: COMPLAINS OF: Joint pain Past Family Social History Allergies: Coded Allergies: Codeine (Verified Allergy, Severe, Dizziness, 03/17/17) Dilaudid (Verified Allergy, Severe, Confusion, 03/17/17) Phenergan (Verified Allergy, Severe, Swelling, 03/17/17) Amlodipine (Verified Allergy, Intermediate, 03/17/17) Past Medical History Pancreatic cancer status post surgery and chemotherapy Hypertension Diabetes Acute renal failure on dialysis Anemia Constipation Pancreatic insufficiency Past Surgical History Partial pancreatectomy PermCath placement Cholecystectomy Splenectomy along with pancreatectomy Reported Medications Reported Meds & Active Scripts Active Metoprolol Tartrate 50 Mg Tab 50 Mg PO BID Reported Pancreatin 1 Gm Powder 500 Mg PO Ativan (Lorazepam) 0.5 Mg Tab 0.5 Mg PO Q4H PRN Xanax (Alprazolam) 0.5 Mg Tab 0.5 Mg PO Q6H PRN Ondansetron (Ondansetron HCl) 8 Mg Tab 8 Mg PO TID Docusate Sodium 100 Mg Cap 100 Mg PO DAILY Hydralazine (Hydralazine HCl) 100 Mg Tab 25 Mg PO Q6HR Take with meals Diltiazem (Diltiazem HCl) 120 Mg Tab 120 Mg PO DAILY Clonidine (Clonidine HCl) 0.1 Mg Tab 0.15 Mg PO TID Vitamin D3 (Cholecalciferol) 400 Unit Cap 500 Units PO DAILY Systane Opth Drops (Polyethylene Glycol-Propylene Glycol Opth Drp) 0.4-0.3% Soln 1-2 Drop EACH EYE PRN PRN Calcium Carbonate (Antacid) 500 Mg Chew 750 Mg CHEW PRN Probiotic (Lactobacillus Acidophilus) 1 Cap Cap 1 Cap PO TIDAC Aspirin 81 Mg Chew 81 Mg CHEW DAILY Folic Acid 400 Mcg Tab 400 Mcg PO DAILY Active Ordered Medications Current Medications Medications (Trade) Dose Ordered Sig/Nathaniel Route Start Time Stop Time Status Last Admin Sodium Chloride 2 ml 2 ml UNSCH PRN IV FLUSH 03/17/17 12:45 03/18/17 08:38 Ceftriaxone Sodium 1000 mg/ Sodium Chloride 100 ml @ 200 mls/hr Q24H IV 03/17/17 16:00 03/17/17 17:03 (Flagyl 500 Mg Inj) 100 ml @ 100 mls/hr Q8H IV 03/17/17 23:00 03/18/17 06:10 (Zofran Inj) 4 mg Q8HR PRN IV PUSH 03/17/17 16:00 03/17/17 18:33 (Xanax) 0.5 mg Q6H PRN PO 03/17/17 16:15 (Apresoline) 25 mg Q6HR PO 03/17/17 18:00 (Lopressor) 50 mg BID PO 03/17/17 21:00 03/18/17 08:36 (Cardizem Cd) 120 mg DAILY PO 03/18/17 09:00 03/18/17 08:36 Clonidine 0.1 mg 0.1 mg Q8HR PRN PO 03/17/17 16:15 (NS 1000 ml Inj) 1,000 ml @ 40 mls/hr Q24H ONCE IV 03/17/17 16:15 03/18/17 16:14 03/17/17 17:04 (Morphine Inj) 2 mg Q4HR PRN IV PUSH 03/17/17 16:15 (Heparin Inj) 5,000 units Q12HR SQ 03/17/17 21:00 Hold (Protonix Inj) 40 mg Q24H IV PUSH 03/17/17 18:00 03/17/17 18:33 (Compazine Inj) 5 mg Q8H PRN IV PUSH 03/17/17 17:30 (Vasotec Inj) 1.25 mg Q8H PRN IV PUSH 03/17/17 20:15 03/17/17 20:16 (Ativan Inj) 0.5 mg Q8H PRN IV 03/17/17 20:45 03/17/17 20:47 (Catapres) 0.1 mg Q8HR PO 03/18/17 14:00 Family History Noncontributory Social History She denies smoking or alcohol Physical Exam Vital Signs Vital Signs Date Time Temp Pulse Resp B/P Pulse Ox O2 Delivery O2 Flow Rate FiO2 03/18/17 08:08 98.1 80 18 163/74 97 03/18/17 04:18 98.9 82 16 161/79 97 03/18/17 00:00 98.0 84 16 179/86 98 03/17/17 19:59 98.6 80 20 214/99 97 03/17/17 17:49 222/108 03/17/17 15:35 80 15 179/85 95 Room Air 03/17/17 14:59 76 16 179/85 95 Room Air 03/17/17 12:34 97 Room Air 03/17/17 12:34 98.1 68 14 191/90 Room Air 03/17/17 12:21 98.1 77 17 215/109 98 Physical Exam GENERAL: Well-nourished, well-developed patient. SKIN: Warm and dry. HEAD: Normocephalic. EYES: No scleral icterus. No injection or drainage. NECK: Supple, trachea midline. No JVD or lymphadenopathy. CARDIOVASCULAR: Regular rate and rhythm without murmurs, gallops, or rubs. PermCath on the right side RESPIRATORY: Breath sounds equal bilaterally. No accessory muscle use. GASTROINTESTINAL: Abdomen soft, non-tender, nondistended. EXTREMITIES: No cyanosis, or edema. NEUROLOGICAL: Awake, alert, and oriented x 3. Non-focal. Laboratory Laboratory Tests Test 03/17/17 03/17/17 03/18/17 03/18/17 14:54 15:45 06:35 09:04 Prothrombin Time 10.2 Prothromb Time International 0.9 Ratio Activated Partial 25.0 Thromboplast Time Sodium Level 132 134 Potassium Level 3.6 3.4 Chloride Level 97 99 Carbon Dioxide Level 26.7 24.9 Anion Gap 8 10 Blood Urea Nitrogen 20 31 Creatinine 2.83 3.62 Estimat Glomerular Filtration 17 13 Rate Random Glucose 105 134 Calcium Level 9.6 9.2 Total Bilirubin 0.5 Aspartate Amino Transf 26 (AST/SGOT) Alanine Aminotransferase 15 (ALT/SGPT) Alkaline Phosphatase 87 Total Protein 6.5 Albumin 2.8 Lipase 101 White Blood Count 19.8 12.2 Red Blood Count 3.74 3.62 Hemoglobin 11.2 10.6 Hematocrit 34.4 32.8 Mean Corpuscular Volume 91.8 90.5 Mean Corpuscular Hemoglobin 30.0 29.3 Mean Corpuscular Hemoglobin 32.6 32.4 Concent Red Cell Distribution Width 16.0 15.7 Platelet Count 440 444 Mean Platelet Volume 9.9 9.6 Neutrophils (%) (Auto) 95.1 94.7 Lymphocytes (%) (Auto) 1.4 2.4 Monocytes (%) (Auto) 3.5 2.5 Eosinophils (%) (Auto) 0.0 0.0 Basophils (%) (Auto) 0.0 0.4 Neutrophils # (Auto) 18.8 11.5 Lymphocytes # (Auto) 0.3 0.3 Monocytes # (Auto) 0.7 0.3 Eosinophils # (Auto) 0.0 0.0 Basophils # (Auto) 0.0 0.0 CBC Comment AUTO DIFF DIFF FINAL Differential Comment AUTO DIFF CONFIRMED Toxic Vacuolation PRESENT Platelet Estimate HIGH Platelet Morphology Comment NORMAL Keratocytes 1+ Lactic Acid Level 0.8 Urine Color DARK-BROWN Urine Turbidity CLOUDY Urine pH 5.5 Urine Specific [place] 1.025 Urine Protein 100 Urine Glucose (UA) NEG Urine Ketones NEG Urine Occult Blood SMALL Urine Nitrite NEG Urine Bilirubin NEG Urine Urobilinogen 2.0 Urine Leukocyte Esterase LARGE Urine RBC 10 Urine WBC Urine WBC Clumps FEW Urine Squamous Epithelial 3 Cells Urine Transitional Epithelial 6 Cells Urine Bacteria MOD Urine Yeast (Budding) MOD Microscopic Urinalysis Comment CULTURE INDICATED Date/Time Procedure Status Source Growth 03/18/17 09:04 Urine Culture Received Urine Clean Catch Pending 03/17/17 15:45 Aerobic Blood Culture - Preliminary Resulted Blood Peripheral NO GROWTH IN 1 DAY 03/17/17 15:45 Anaerobic Blood Culture - Preliminary Resulted Blood Peripheral NO GROWTH IN 1 DAY Result Diagram: 03/18/17 0635 03/18/17 0635 Imaging Last Impressions Abdomen/Pelvis CT 03/17/17 4765 Signed Impressions: Service Date/Time: Friday, March 17, 2017 12:58 - CONCLUSION: 1. Diffuse colonic thickening the most prominent in the sigmoid region likely related to colitis. 2. Sigmoid colon diverticula without significant inflammatory change seen around the diverticula. 3. Mild ascites. 4. Mild bilateral pleural effusions. 5. Status post splenectomy and distal pancreatectomy. Moy Kan MD Assessment and Plan Problem List: (1) PAULA (acute kidney injury) Plan: On hemodialysis Sunday, Sunday and Sunday this will be continued while she is admitted in the hospital Monitor BMP Avoid nephrotoxins Avoid dye studies or gadolinium Follows with Dr. Rajput, Dr. Frank to cover from tomorrow. (2) Colitis Plan: Colonoscopy and endoscopy planned (3) Pancreatic cancer Plan: Status post surgery and chemotherapy (4) UTI (urinary tract infection) Plan: On ceftriaxone Roselia Cam MD Mar 18, 2017 12:33
[2017-03-18] MEDS ORDERED: MANNITOL 12.5 GM/50 ML VIAL IV PRN (12:45)
[2017-03-18] MEDS ORDERED: HEPARIN SODIUM - IV 10,000 UNITS/10 ML VIAL IVF PRN (12:45)
[2017-03-18] MEDS ORDERED: HEPARIN SODIUM - IV 10,000 UNITS/10 ML VIAL PRN (12:45)
[2017-03-18] MEDS ORDERED: EPOETIN ALFA 10,000 UNITS/ML VIAL IV PRN (12:45)
[2017-03-18] MEDS ORDERED: ACETAMINOPHEN 325 MG TAB PO PRN (12:45)
[2017-03-18] MEDS ORDERED: cloNIDine HCL 0.1 MG TAB PO PRN (12:45)
[2017-03-18] MEDS ORDERED: GENTAMICIN SULFATE (DIALYSIS USE ONLY) 20 MG/2 ML VIAL IV PRN (12:45)
[2017-03-18] MEDS ORDERED: NITROGLYCERIN 0.4 MG SL 25 TABS/BTL SL PRN (12:45)
[2017-03-18] MEDS ORDERED: SODIUM CHLORIDE 0.9% FLUSH 10 ML FLUSH IV FLUSH PRN (12:45)
[2017-03-18] MEDS ORDERED: diphenhydrAMINE HCL 25 MG CAP PO PRN (12:45)
[2017-03-18] MEDS ORDERED: GELATIN 12 MM/7 MM FOAM TOP PRN (12:45)
[2017-03-18] MEDS ORDERED: ALBUMIN HUMAN 25% 25 GM/100 ML BAGP IV PRN (12:45)
[2017-03-18] MEDS ORDERED: ONDANSETRON HCL 4 MG/2 ML VIAL IV PRN (12:45)
[2017-03-18] MEDS: ENALAPRILAT 1.25 MG/ML VIAL IV PUSH PRN (12:53)
[2017-03-18] MEDS: POTASSIUM CHLORIDE 25 MEQ EFFERVESCENT TAB PO ONE ×2 (13:00→13:29)
[2017-03-18] MEDS: cloNIDine HCL 0.1 MG TAB PO SCH ×2 (14:16→21:17)
[2017-03-18] MEDS: PANTOPRAZOLE SODIUM 40 MG VIAL IV PUSH SCH (16:51)
[2017-03-18] MEDS: cefTRIAXone INJ 1,000 MG in SODIUM CHLORIDE 0.9% INJ 100 ML IV SCH (17:00)
[2017-03-18] MEDS ORDERED: PEG (High)/E-LYTE SOLN 4000 ML BTL PO ONE (18:00)
--- NOTE | 2017-03-18 18:07 | MB ---
cc: JANINE BROCK M.D. DATE OF CONSULTATION: 03/18/2017 REASON FOR CONSULTATION: Abdominal pain, abnormal CT scan and constipation. DATE OF : 1955. HISTORY OF PRESENT ILLNESS: Thank you for the consultation. This is a pleasant 62-year-old lady who unfortunately was diagnosed with pancreatic cancer last year status post chemotherapy and resection. She since then had constipation and has been struggling with bowel movements. She came with severe abdominal pain, colicky in nature, mostly in the left lower quadrant. No radiation. Severe. She denied any diarrhea and no blood in the stool. She had some nausea and vomiting. No fever or chills. The nausea and vomiting has been going on for few days also. PAST MEDICAL HISTORY: The past medical history significant for: 1. End-stage renal disease on hemodialysis. 2. Pancreatic cancer. 3. Hypertension. MEDICATIONS: Reviewed in the chart. PAST SURGICAL HISTORY: 1. Pancreatic cancer surgery. 2. Cholecystectomy. 3. Splenectomy. 4. She had an endoscopy and colonoscopy about a year and a half ago. ALLERGIES: Multiple includin. AMLODIPINE. 2. PHENERGAN. 3. DILAUDID. 4. CODEINE. MEDICATIONS: Reviewed in the chart. SOCIAL HISTORY: No tobacco, drug or alcohol. FAMILY HISTORY: Significant for breast cancer. PHYSICAL EXAMINATION: GENERAL: Alert, oriented IN no acute distress at this time. VITAL SIGNS: Stable. HEAD, EYES, EARS, NOSE, THROAT: Pupils are round and reactive to light. NECK: The neck is supple. CHEST: Clear. CARDIAC: Regular rate and rhythm. ABDOMEN: The abdomen is soft and nondistended. Positive bowel sounds. Mostly the tenderness in the abdomen is around the left lower quadrant. EXTREMITIES: No cyanosis, clubbing or edema.. NEUROLOGICAL: Intact. PSYCHIATRIC: Psychologically appropriate. LABORATORY DATA: Normal liver function tests. Normal lipase. BUN 31, creatinine 3.61. INR 0.9. White count yesterday was 19.8 and today it is 12.2. Hemoglobin 10.6. Platelet count 444,000. IMAGING STUDIES: CT scan showed diffuse colonic thickening mostly in the sigmoid, some diverticulosis, mild ascites, status post splenectomy and pancreatectomy. ASSESSMENT AND PLAN: 62-year-old lady with significant abdominal pain, nausea and vomiting, severe constipation and abnormal CT scan. Most likely this could be ischemic colitis and not clear about the nausea, vomiting it could be just reaction to the colitis but also could be peptic ulcer disease or even need to rule out any obstruction with her history of the pancreatic cancer. 1. Recommend doing upper endoscopy and colonoscopy. I discussed with her the procedure and complication. She agreed to have it done and this will be done tomorrow. 2. Will try to prep her today. 3. Meanwhile continue supportive care. 4. I asked her to avoid constipation by using some stool softener as much as she needs to avoid that. MD JERSON Salgado/GUSTAVO /5:41 PM /5:58 PM
[2017-03-18] MEDS: ONDANSETRON HCL 4 MG/2 ML VIAL IV PUSH PRN (19:59)
[2017-03-18] MEDS: LORazepam 2 MG/ML VIAL IV PRN (21:46)
[2017-03-19] VITALS: BP 132/75; PULSE 60; RESP 20; TEMP 98.3; O2SAT 97
[2017-03-19 04:00] VITALS: BP 168/81; PULSE 71; RESP 20; TEMP 98.5; O2SAT 97
[2017-03-19] MEDS: cloNIDine HCL 0.1 MG TAB PO SCH ×2 (06:20→14:08)
[2017-03-19] MEDS: hydrALAZINE HCL 25 MG TAB PO SCH ×4 (06:20→14:08)
[2017-03-19 07:54] VITALS: BP 146/70; PULSE 69; RESP 17; TEMP 97.5; O2SAT 97
[2017-03-19] MEDS: METOPROLOL TARTRATE 50 MG TAB PO SCH ×2 (08:14→09:00)
[2017-03-19] MEDS: DILTIAZEM-CD 120 MG CAP ER PO SCH (08:14)
[2017-03-19] MEDS: metroNIDAZOLE 500 MG INJ 100 ML IV SCH (08:14)
--- NOTE | 2017-03-19 08:42 | HHI.PR ---
Subjective Remarks f/u; colitis resting comfortably with no acute distress. afebrile. had a few loose BM's over night. abdominal pain has resolved. no nausea or vomiting today. hoping that she would go home today. Objective Vitals Vital Signs Date Time Temp Pulse Resp B/P Pulse Ox O2 Delivery O2 Flow Rate FiO2 03/19/17 04:00 98.5 71 20 168/81 97 03/19/17 00:00 98.3 60 20 132/75 97 03/18/17 20:00 98.0 74 18 152/75 97 03/18/17 20:00 75 03/18/17 18:01 96 21 03/18/17 16:27 99.3 76 18 180/90 96 03/18/17 15:00 88 03/18/17 12:52 98.7 75 18 182/90 98 I/O 03/18/17 03/18/17 03/18/17 03/19/17 03/19/17 03/19/17 07:00 15:00 23:00 07:00 15:00 23:00 Intake Total 329 ml 60 ml Output Total 6 ml 5 ml Balance 329 ml -6 ml -5 ml 60 ml Intake Oral 60 ml IV Total 329 ml Output Stool Total 6 ml 5 ml # Voids 1 2 3 0 # Bowel Movements 0 3 Result Diagram: 03/18/17 0635 03/18/17 0635 Imaging Last Impressions Abdomen/Pelvis CT 03/17/17 1245 Signed Impressions: Service Date/Time: Friday, March 17, 2017 12:58 - CONCLUSION: 1. Diffuse colonic thickening the most prominent in the sigmoid region likely related to colitis. 2. Sigmoid colon diverticula without significant inflammatory change seen around the diverticula. 3. Mild ascites. 4. Mild bilateral pleural effusions. 5. Status post splenectomy and distal pancreatectomy. Moy Kan MD Objective Remarks GENERAL: This is a well-nourished, well-developed patient, in no apparent distress. CARDIOVASCULAR: Regular rate and regular rhythm without murmurs, gallops, or rubs. RESPIRATORY: Clear to auscultation. Breath sounds equal bilaterally. No wheezes , rales, or rhonchi. GASTROINTESTINAL: Abdomen soft, minimal LLQ tenderness, nondistended. Normal, active bowel sounds MUSCULOSKELETAL: Extremities without clubbing, cyanosis, or edema. NEURO: Alert & Oriented x4 to person, place, time, situation. Moves all ext x4 Procedures none Medications and IVs Current Medications Sodium Chloride (NS Flush) 2 ml UNSCH PRN IV FLUSH FLUSH AFTER USING IV ACCESS Last administered on 03/18/17 21:46; Start 03/17/17 at 12:45 Hydralazine HCl (Apresoline Inj) 10 mg ONCE ONCE IV PUSH Last administered on 03/17/17 14:27; Start 03/17/17 at 13:30; Stop 03/17/17 at 13:31; Status DC Ondansetron HCl 4 mg 4 mg ONCE ONCE PO Last administered on 03/17/17 13:51; Start 03/17/17 at 13:45; Stop 03/17/17 at 13:46; Status DC Ciprofloxacin/ Dextrose 200 ml @ 200 mls/hr ONCE ONCE IV Last administered on 03/17/17 16:51; Start 03/17/17 at 15:15; Stop 03/17/17 at 16:14; Status DC Metronidazole (Flagyl 500 Mg Inj) 100 ml @ 100 mls/hr ONCE ONCE IV Last administered on 03/17/17 15:33; Start 03/17/17 at 15:15; Stop 03/17/17 at 16:14 ; Status DC Ondansetron HCl 4 mg 4 mg ONCE ONCE IV PUSH Last administered on 03/17/17 15: 54; Start 03/17/17 at 16:00; Stop 03/17/17 at 16:01; Status DC Ceftriaxone Sodium 1000 mg/ Sodium Chloride 100 ml @ 200 mls/hr Q24H IV Last administered on 03/18/17 17:00; Start 03/17/17 at 16:00 Metronidazole (Flagyl 500 Mg Inj) 100 ml @ 100 mls/hr Q8H IV Last administered on 03/19/17 08:14; Start 03/17/17 at 23:00 Ondansetron HCl (Zofran Inj) 4 mg Q8HR PRN IV PUSH NAUSEA Last administered on 03/18/17 19:59; Start 03/17/17 at 16:00 Alprazolam (Xanax) 0.5 mg Q6H PRN PO ANXIETY; Start 03/17/17 at 16:15 Hydralazine HCl (Apresoline) 25 mg Q6HR PO Last administered on 03/19/17 06:20 ; Start 03/17/17 at 18:00 Metoprolol Tartrate (Lopressor) 50 mg BID PO Last administered on 03/19/17 08: 14; Start 03/17/17 at 21:00 Diltiazem HCl (Cardizem Cd) 120 mg DAILY PO Last administered on 03/19/17 08: 14; Start 03/18/17 at 09:00 Clonidine 0.1 mg 0.1 mg Q8HR PRN PO SBP> OR = 180, DBP> OR = 100; Start at 16:15 Sodium Chloride (NS 1000 ml Inj) 1,000 ml @ 40 mls/hr Q24H ONCE IV Last administered on 03/17/17 17:04; Start 03/17/17 at 16:15; Stop 03/18/17 at 16:14 ; Status DC Morphine Sulfate (Morphine Inj) 2 mg Q4HR PRN IV PUSH PAIN 1-10; Start at 16:15 Heparin Sodium (Porcine) (Heparin Inj) 5,000 units Q12HR SQ ; Start 03/17/17 at 21:00; Status Hold Pantoprazole Sodium (Protonix Inj) 40 mg Q24H IV PUSH Last administered on 03/18 16:51; Start 03/17/17 at 18:00 Prochlorperazine Edisylate (Compazine Inj) 5 mg Q8H PRN IV PUSH NAUSEA; Start 03/17/17 at 17:30 Enalaprilat (Vasotec Inj) 1.25 mg Q8H PRN IV PUSH SBP>180/DBP>100 Last administered on 03/18/17 12:53; Start 03/17/17 at 20:15 Lorazepam (Ativan Inj) 0.5 mg Q8H PRN IV ANXIETY Last administered on 21:46; Start 03/17/17 at 20:45 Clonidine 0.1 mg 0.1 mg Q8HR PO Last administered on 03/19/17 06:20; Start at 14:00 Sodium Chloride (NS 1000 ml Inj) 1,000 ml @ 0 mls/hr Q0M PRN IV For Prime & Rinse Back; Start 03/18/17 at 12:33 Heparin Sodium (Porcine) 8000 units 8,000 units UNSCH PRN IVF WITH DIALYSIS; Start 03/18/17 at 12:45 Sodium Chloride 1,000 ml @ 200 mls/hr Q5H PRN IV WITH DIALYSIS; Start 03/18/17 at 12:33 Sodium Chloride (NS 1000 ml Inj) 1,000 ml @ 0 mls/hr Q0M PRN IV WITH DIALYSIS; Start 03/18/17 at 12:33 Mannitol (Mannitol Inj) 12.5 gm UNSCH PRN IV WITH DIALYSIS; Start 03/18/17 at 12:45 Albumin Human (Albumin 25% Inj) 25 gm UNSCH PRN IV WITH DIALYSIS; Start at 12:45 Sodium Chloride (NS Flush) 5 ml UNSCH PRN IV FLUSH WITH DIALYSIS; Start at 12:45 Heparin Sodium (Porcine) (Heparin Inj) UNSCH PRN .XX WITH DIALYSIS; Start at 12:45 Gentamicin Sulfate (Gentamicin (Dialysis) Inj) 20 mg UNSCH PRN IV WITH DIALYSIS ; Start 03/18/17 at 12:45 Ondansetron HCl (Zofran Inj) 4 mg UNSCH PRN IV WITH DIALYSIS; Start 03/18/17 at 12:45 Acetaminophen (Tylenol) 650 mg UNSCH PRN PO for headach, pain, temp > 101F Last administered on 03/18/17t 21:45; Start 03/18/17 at 12:45 Diphenhydramine HCl (Benadryl) 25 mg UNSCH PRN PO for hives/itching/anaphylaxis ; Start 03/18/17 at 12:45 Nitroglycerin (Nitrostat Sl) 0.4 mg UNSCH PRN SL CHEST PAIN; Start 03/18/17 at 12:45 Clonidine (Catapres) 0.1 mg UNSCH PRN PO for BP > 180/100 X 2 readings Last administered on 03/18/17t 16:59; Start 03/18/17 at 12:45 Epoetin Laci (Epogen Inj) 4,000 units UNSCH PRN IV WITH DIALYSIS; Start at 12:45 Gelatin (Gelfoam 12 Mm/7 Mm Top) 1 foam UNSCH PRN TOP SEE LABEL COMMENTS; Start 03/18/17 at 12:45 Potassium Bicarb/ Potassium Chloride (K-Lyte Cl Eff) 25 meq ONCE ONCE PO ; Start 03/18/17 at 13:00; Stop 03/18/17 at 13:01; Status DC Polyethylene Glycol/ Electrolytes (Colyte Liq) 4,000 ml ONCE ONCE PO ; Start at 18:00; Stop 03/18/17 at 18:01; Status DC A/P Assessment and Plan A/P - colitis- improved. advance the diet slowly- continue with antibiotics- continue supportive care with antiemetics and analgesics as needed- GI consult appreciated; recommended endoscopy- but the patient has declined and wants to get it done as outpatient. previously d/w her son ( who's a family physician) as well. -one episode of hematemesis at the time of presentation- with no recurrence H/H stable- continue PPI- GI evaluation as noted above -possible UTI- continue antibiotic- follow the UC. -ESRD- on HD; consulted nephrology ( ); HD per nephrology -hypertension; resumed home meds- clonidine as needed- continue to monitor and adjust the regimen as needed. -DVT prophylaxis with SCD's Discharge Planning possible dc home later this evening and after HD- if tolerates the diet and remains stable- f/u; pcp, GI and nephrology upon discharge. see med list. d/w the patient and her and previously with her son. time spent 31 min. Travis Spencer MD Mar 19, 2017 08:41
[2017-03-19] MEDS ORDERED: PROT40TA PO (08:49)
[2017-03-19] MEDS ORDERED: METR-1 PO (08:49)
[2017-03-19] MEDS ORDERED: CIPR250T52 PO (08:49)
--- NOTE | 2017-03-19 08:49 | HHI.DCPOC ---
Discharge Care Plan Diagnosis: (1) Colitis Your Health Problems Are: Inflammation Irregular Bowel Function Goals to Promote Your Health * To prevent worsening of your condition and complications * To maintain your health at the optimal level Directions to Meet Your Goals Take your medications as prescribed Follow your dietary instruction Follow activity as directed Keep your appointments as scheduled Take your immunizations and boosters as scheduled If your symptoms worsen call your PCP, if no PCP go to Urgent Care Center or Emergency Room Smoking is Dangerous to Your Health. Avoid second hand smoke Call the 24-hour hour crisis hotline for domestic abuse at Travis Spencer MD Mar 19, 2017 08:49
--- NOTE | 2017-03-19 08:50 | HHI.DS ---
Discharge Summary Admission Date Mar 17, 2017 at 16:12 Discharge Date: Mar 19, 2017 Admitting Diagnosis Sepsis secondary to colitis (1) Colitis ICD Code: K52.9 Diagnosis: Principal Procedures none Brief History - From Admission patient is a 62 y/o female with history of pancreatic cancer and ESRD-on HD presented to ER with abdominal pain. she says that the pain started last night. pain is colicky in nature and localized to LLQ with no radiation. pain is severe in intensity and is worse with eating and movement. pain was associated with nausea and emesis- she denies any fever or chills but she says that she was constipated a few days ago and needed disimpaction at the time. CBC/BMP: 03/18/17 0635 03/18/17 0635 Significant Findings Laboratory Tests Test 03/17/17 03/18/17 03/18/17 14:54 06:35 09:04 Sodium Level 132 MEQ/L 134 MEQ/L (136-145) (136-145) Chloride Level 97 MEQ/L (98-107) Blood Urea Nitrogen 20 MG/DL (7-18) 31 MG/DL (7-18) Creatinine 2.83 MG/DL 3.62 MG/DL (0.50-1.00) (0.50-1.00) Estimat Glomerular Filtration 17 ML/MIN (>89) 13 ML/MIN (>89) Rate Albumin 2.8 GM/DL (3.4-5.0) White Blood Count 19.8 TH/MM3 12.2 TH/MM3 (4.0-11.0) (4.0-11.0) Red Blood Count 3.74 MIL/MM3 3.62 MIL/MM3 (4.00-5.30) (4.00-5.30) Hemoglobin 11.2 GM/DL 10.6 GM/DL (11.6-15.3) (11.6-15.3) Hematocrit 34.4 % 32.8 % (35.0-46.0) (35.0-46.0) Neutrophils (%) (Auto) 95.1 % 94.7 % (16.0-70.0) (16.0-70.0) Lymphocytes (%) (Auto) 1.4 % 2.4 % (9.0-44.0) (9.0-44.0) Neutrophils # (Auto) 18.8 TH/MM3 11.5 TH/MM3 (1.8-7.7) (1.8-7.7) Lymphocytes # (Auto) 0.3 TH/MM3 0.3 TH/MM3 (1.0-4.8) (1.0-4.8) Toxic Vacuolation PRESENT (NONE SEEN) Platelet Estimate HIGH (NORMAL) Keratocytes 1+ (NORMAL) Potassium Level 3.4 MEQ/L (3.5-5.1) Random Glucose 134 MG/DL (74-106) Urine Color DARK-BROWN (YELLW/STRAW) Urine Turbidity CLOUDY (CLEAR) Urine Protein 100 mg/dL (NEG-TRACE) Urine Occult Blood SMALL (NEG) Urine Leukocyte Esterase LARGE (NEG) Urine RBC 10 /hpf (0-3) Urine WBC Clumps FEW (NONE) Urine Bacteria MOD /hpf (NONE) Urine Yeast (Budding) MOD (NONE) Imaging Last Impressions Abdomen/Pelvis CT 03/17/17 1245 Signed Impressions: Service Date/Time: Friday, March 17, 2017 12:58 - CONCLUSION: 1. Diffuse colonic thickening the most prominent in the sigmoid region likely related to colitis. 2. Sigmoid colon diverticula without significant inflammatory change seen around the diverticula. 3. Mild ascites. 4. Mild bilateral pleural effusions. 5. Status post splenectomy and distal pancreatectomy. Moy Kan MD PE at Discharge GENERAL: This is a well-nourished, well-developed patient, in no apparent distress. CARDIOVASCULAR: Regular rate and regular rhythm without murmurs, gallops, or rubs. RESPIRATORY: Clear to auscultation. Breath sounds equal bilaterally. No wheezes , rales, or rhonchi. GASTROINTESTINAL: Abdomen soft, minimal LLQ tenderness, nondistended. Normal, active bowel sounds MUSCULOSKELETAL: Extremities without clubbing, cyanosis, or edema. NEURO: Alert & Oriented x4 to person, place, time, situation. Moves all ext x4 Hospital Course - colitis- improved. advance the diet slowly- continue with antibiotics- continue supportive care with antiemetics and analgesics as needed- GI consult appreciated; recommended endoscopy- but the patient has declined and wants to get it done as outpatient. previously d/w her son ( who's a family physician) as well. -one episode of hematemesis at the time of presentation- with no recurrence H/H stable- continue PPI- GI evaluation as noted above -possible UTI- continue antibiotic- follow the UC. -ESRD- on HD; consulted nephrology ( ); HD per nephrology -hypertension; resumed home meds- clonidine as needed- continue to monitor and adjust the regimen as needed. -DVT prophylaxis with SCD's Pt Condition on Discharge: Fair Discharge Disposition: Discharge Home Discharge Time: > 30 minutes Discharge Instructions DIET: Follow Instructions for: Dialysis Diet Activities you can perform: Regular-No Restrictions Follow up Referrals: Gastroenterology Nephrology PCP Follow-up New Medications: Ciprofloxacin (Cipro) 250 Mg Tab 250 MG PO DAILY take after HD on dialysis days. Infection Days 7 Ref 0 TAB Metronidazole (Flagyl) 500 Mg Tab 500 MG PO TID Infection Days 7 Ref 0 TAB Pantoprazole (Protonix) 40 Mg Tab 40 MG PO DAILY Reflux #14 Ref 0 TAB Continued Medications: Alprazolam (Xanax) 0.5 Mg Tab 0.5 MG PO Q6H PRN ANXIETY Ref 0 TAB Calcium Carbonate (Antacid) (Calcium Carbonate (Antacid)) 500 Mg Chew 750 MG CHEW PRN HEARTBURN Ref 0 TAB Cholecalciferol (Vitamin D3) 400 Unit Cap 500 UNITS PO DAILY Nutritional Supplement #1 Ref 0 BOTTLE Clonidine (Clonidine) 0.1 Mg Tab 0.15 MG PO TID Blood Pressure Management #60 Ref 0 TAB Diltiazem (Diltiazem) 120 Mg Tab 120 MG PO DAILY Angina #120 Ref 0 TAB Docusate Sodium (Docusate Sodium) 100 Mg Cap 100 MG PO DAILY Prevent Constipation #60 Ref 0 CAP Folic Acid (Folic Acid) 400 Mcg Tab 400 MCG PO DAILY Nutritional Supplement Ref 0 TAB Hydralazine (Hydralazine) 100 Mg Tab 25 MG PO Q6HR Take with meals Blood Pressure Management Ref 0 TAB Lactobacillus Acidophilus (Probiotic) 1 Cap Cap 1 CAP PO TIDAC Nutritional Supplement #90 Ref 0 CAP Lorazepam (Ativan) 0.5 Mg Tab 0.5 MG PO Q4H PRN For mild anxiety / dyspnea Ref 0 TAB Metoprolol Tartrate (Metoprolol Tartrate) 50 Mg Tab 50 MG PO BID #60 Ref 0 TAB Ondansetron (Ondansetron) 8 Mg Tab 8 MG PO TID Nausea/Vomiting Ref 0 TAB Pancreatin (Pancreatin) 1 Gm Powder 500 MG PO Polyethylene Glycol-Propylene Glycol Opth Drp (Systane Opth Drops) 0.4-0.3% Soln 1-2 DROP EACH EYE PRN PRN DRY EYE #1 Ref 0 BOTTLE Discontinued Medications: Aspirin (Aspirin) 81 Mg Chew 81 MG CHEW DAILY Ref 0 TAB Travis Spencer MD Mar 19, 2017 08:50
[2017-03-19] MEDS ORDERED: VITAMIN B CMPLX/VITC/FOLIC AC CAP PO SCH (09:00)
[2017-03-19 10:29] VITALS: PULSE 65
--- NOTE | 2017-03-19 11:48 | HHI.NPPN ---
Subjective History of Present Illness Patient is 62-year-old white female with history of acute renal failure on dialysis with no recovery, she she has pancreatic cancer and was given partial pancreatectomy following which she required chemotherapy with Gemzar, she developed acute renal failure from which she failed to recover and remain on dialysis, she has a PermCath in the right side of the chest and goes on Sunday, Sunday and Sunday, the reason she is admitted is due to abdominal pain and severe constipation, CT scan showed colitis and she is going to have endoscopy and colonoscopy performed. She complained of maroon urine. She follows with Dr. Rajput Interval History The patient was seen during her dialysis session. Indicated that she was feeling better as far as her GI complaints were concerned and she is being discharge. Review of Systems General Constitutional: Fatigue Objective Data Data 03/18/17 03/19/17 19:00 07:00 Intake Total 60 ml Output Total 6 ml 5 ml Balance -6 ml 55 ml Intake Oral 60 ml Output Stool Total 6 ml 5 ml # Voids 2 3 # Bowel Movements 3 Vital Signs Date Time Temp Pulse Resp B/P Pulse Ox O2 Delivery O2 Flow Rate FiO2 03/19/17 10:29 65 03/19/17 07:54 97.5 69 17 146/70 97 03/19/17 04:00 98.5 71 20 168/81 97 03/19/17 00:00 98.3 60 20 132/75 97 03/18/17 20:00 98.0 74 18 152/75 97 03/18/17 20:00 75 03/18/17 18:01 96 21 03/18/17 16:27 99.3 76 18 180/90 96 03/18/17 15:00 88 03/18/17 12:52 98.7 75 18 182/90 98 -: 03/18/17 0635 03/18/17 0635 Physical Exam General Appearance: No Acute Distress, Comfortable Eyes Eye Exam: Sclera White Pulmonary Resp Exam: Clear Bilaterally, Breath Sounds Equal, No Distress Cardiology CV Exam: Regular, Normal Sinus Rhythm, Good Perfusion Gastrointestinal/Abdomen GI Exam: Soft Assessment/Plan Discussed Condition With: Patient Problem List: (1) PAULA (acute kidney injury) Plan: PermCath maintaining blood flow of 300 MLS per minute. Patient reports no difficulty with access as an outpatient. She was advised to follow-up with her outpatient dialysis facility. There is persisting blood flow issues further evaluation by interventional nephrology may be required as discussed with her. Avoid nephrotoxins Avoid dye studies or gadolinium Follows with Dr. Rajput, as an outpatient. (2) Colitis Plan: Management per GI. (3) Pancreatic cancer Plan: Status post surgery and chemotherapy (4) UTI (urinary tract infection) Plan: On ceftriaxone Lamin Frank MD Mar 19, 2017 11:48
[2017-03-19 13:32] VITALS: BP 166/74; PULSE 71; RESP 17; TEMP 98.1; O2SAT 96
== END 2017-03-19 15:34 | disposition home or self-care (01) | DRG 393 ==
LOC: NEPC 12:19 → NEDA 16:12 → N05A 17:30
PROVIDERS: ADMIT Internal Medicine; ATTEND Internal Medicine
DX: K55.9 Vascular disorder of intestine, unspecified (principal); N18.6 End stage renal disease; E11.22 Type 2 diabetes mellitus with diabetic chronic kidney disease; N17.9 Acute kidney failure, unspecified; K59.00 Constipation, unspecified; I12.0 Hypertensive chronic kidney disease with stage 5 chronic kidney disease or end stage renal disease; N39.0 Urinary tract infection, site not specified; I34.1 Nonrheumatic mitral (valve) prolapse; F41.9 Anxiety disorder, unspecified; Z85.07 Personal history of malignant neoplasm of pancreas; Z88.5 Allergy status to narcotic agent; Z90.81 Acquired absence of spleen; Z92.21 Personal history of antineoplastic chemotherapy; Z99.2 Dependence on renal dialysis
CPT/HCPCS: 74176; 76937; 80048; 80053; 81001; 83605; 83690; 85025; 85610; 85730; 87040; 87086; 90935; 96374; 96375; C9113; J0360; J0696; J0744; J1580; J1644; J2060; J2405; J7030; Q4081

== ENCOUNTER → 2017-05-09 | Outpatient (CLI) | payer OTHER ==
[~2017-05-09] MED LIST changes: +ALPR.5 PO; -ASPI81CH CHEW; -AZIT250T3 PO; -CEFT500T3 PO; +CHOL1CAP8 PO; +CIPR250T52 PO; +CLON0.1T PO; -COZA25TA PO; -DIFL100T PO; +DILT120T PO; +DOCU100C PO; +HYDR-3801 PO; +LORA-392 PO; +METR-1 PO; -MULTTAB67 PO; -OMEGCAP PO; +ONDA1TAB17 PO; +PROT40TA PO; -VITA400C59 CHEW; +[UNRECOGNIZED DRUG - CODE] PO; -[UNRECOGNIZED DRUG - CODE] PO
--- NOTE | 2017-05-09 15:14 | RADRPT ---
EXAM DATE/TIME: 05/09/2017 13:54 [facility] COMPARISON: No previous studies available for comparison. INDICATIONS : Dyspnea. Left shoulder pain. DOSE: 8.3 mCi Tc99m MAA IV 0.7 mCi Tc99m DTPA aerosol MEDICAL HISTORY : Diabetes mellitus type 2. Carcinoma, pancreas. Renal failure, chronic. SURGICAL HISTORY : Cholecystectomy. ENCOUNTER: Initial ACUITY: 1 day PAIN SCALE: 3/10 LOCATION: Left Shoulder. TECHNIQUE: Following five minutes of tidal breathing of DTPA aerosol, planar images of the lungs were performed in eight projections. The patient was then injected with MAA, and eight-view perfusion scan was perf ormed. FINDINGS: There is a homogeneous pattern of aerosol delivery to the periphery of both lungs. No focal ventilat ory defects are seen. The perfusion lung scan demonstrates a homogenous pattern of uptake in both lungs. No segmental or s ubsegmental defects are seen. CONCLUSION: 1. No pulmonary embolus identified. Gamaliel Oneill MD on May 09, 2017 at 15:02 Board Certified Radiologist. This report was verified electronically.
--- NOTE | 2017-05-09 15:28 | RADRPT ---
EXAM DATE/TIME: 05/09/2017 14:39 [facility] COMPARISON: No previous studies available for comparison. INDICATIONS : Short of breath, comp VQ scan. MEDICAL HISTORY : Carcinoma, pancreas. SURGICAL HISTORY : pancreas resection, splenectomy, cholecystectomy. ENCOUNTER: Initial ACUITY: 1 day PAIN SCORE: 0/10 LOCATION: Bilateral chest Dialysis catheter is in good position. Small bilateral pleural effusions are noted. The heart is mi nimally enlarged. Mild interstitial edema is present. There is no alveolar consolidation or pneumoth orax. CONCLUSION: Mild interstitial edema. Camilo Oneill MD FACR on May 09, 2017 at 15:26 Board Certified Radiologist. This report was verified electronically.
== END ==
LOC: HRAD 12:00
PROVIDERS: ATTEND Internal Medicine
DX: M54.2 Cervicalgia (principal); R06.02 Shortness of breath
CPT/HCPCS: 71010; 78582; A9540; A9567